=== PATIENT | female | born 1965 | race Caucasian/White ===

== ENCOUNTER 2017-08-20 15:36 | Emergency (ER) | payer BC, SELFPAY ==
[2017-08-20 15:37] VITALS: BP 182/98; BP 219/110; PULSE 75; PULSE 78; RESP 16; RESP 18; TEMP 36.5; O2SAT 97; O2SAT 98; BMI 54.9
--- NOTE | 2017-08-20 15:46 | XR_ITS ---
XR chest 2V HISTORY: ITS.REASON: chest pain ORDERING PHYSICIAN: Palmer Hackett MD PATIENT AGE: 52 years COMPARISON: None available FINDINGS: The cardiomediastinal silhouette and pulmonary vascularity are within normal limits. The lungs are clear without infiltrates, suspicious nodules, or pleural effusions. No acute bony abnormalities. IMPRESSION: Negative chest, no acute finding
[2017-08-20 15:57] LABS: Basophils # 0.1 K/mm3 (0-0.2); Basophils % 0.5 % (0.1-2.0); Eosinophils # 0.4 K/mm3 (0.0-0.4); Eosinophils % 3.6 % (0.1-12.0); Hematocrit 44.6 % (37.0-47.0); Hemoglobin 14.4 g/dL (12.2-16.2); Lymphocytes # 2.5 K/mm3 (0.7-4.5); Lymphocytes % 23.9 K/mm3 (10-50); Mean Corpuscular HGB Conc 32.3 g/dL (31.8-35.4); Mean Corpuscular Hemoglobin 26.5 pg (27.0-31.2); Mean Corpuscular Volume 82.1 fl (81-99); Mean Platelet Volume 8.6 fl (7.4-10.4); Monocytes # 0.7 K/mm3 (0.1-1.0); Monocytes % 6.9 % (1.7-9.3); Neutrophils # 6.8 K/mm3 (1.8-7.8); Neutrophils % 65.1 % (37.0-80.0); Platelet Count 317 K/mm3 (142-424); Red Blood Count 5.44 M/mm3 (4.20-5.40); Red Cell Distribution Width 14.2 % (11.5-17.5); White Blood Count 10.5 K/mm3 (4.8-10.8)
--- NOTE | 2017-08-20 15:59 | HMH.EDCP ---
ED Disposition Clinical Impression: GERD with esophagitis Chest pain Qualifiers: Chest pain type: unspecified Qualified Code(s): R07.9 - Chest pain, unspecified Disposition: Home, Self-Care Condition on Discharge: Fair Instructions: DI for Atypical Chest Pain Additional Instructions: Use Prilosec 20 mg BID and alternate maalox and mylanta 2 tbsp every [address] Minor to get referral for EGD and to get help with Anxiety Prescriptions: Omeprazole Magnesium [Prilosec Otc 20mg Tab] 20 mg PO BID 30 Days #60 tab Referrals: Chano Minor MD [Primary Care Provider] - Time of Disposition: 18:07 - Critical Care Critical Care Time: No Attestation: On 08/20/17, the high probability of a clinically significant, sudden or life threatening deterioration of the following system(s) required my full and direct attention, intervention and personal management. The time I documented below is in addition to time spent performing reported procedures but includes the following listed in this critical care notation. Medical Decision Making - Medical Records Medical records reviewed: Yes: I reviewed the patient's medical records. Vital Signs: 08/20/17 15:37 08/20/17 16:30 08/20/17 17:49 Temperature 97.7 F Temperature Source Oral Pulse Rate [Right Brachial] 78 74 79 Respiratory Rate 16 16 16 Blood Pressure [Right Arm] 182/98 133/98 139/78 Blood Pressure Mean [Right Arm] 126 109 98 Blood Pressure Source [Right Arm] Automatic Cuff Blood Pressure Position [Right Arm] Supine 02 Sat by Pulse Oximetry 97 98 98 Oxygen Delivery Method Room Air - Lab Data Lab results reviewed: Yes: I reviewed the patient's lab results. Lab Results 08/20/17 15:45: WBC 10.5, RBC 5.44 H, Hgb 14.4, Hct 44.6, MCV 82.1, MCH 26.5 L, MCHC 32.3, RDW 14.2, Plt Count 317, MPV 8.6, Neut % (Auto) 65.1, Lymph % (Auto) 23.9, [place] % (Auto) 6.9, Eos % (Auto) 3.6, Baso % (Auto) 0.5, Neut # (Auto) 6.8, Lymph # (Auto) 2.5, [place] # (Auto) 0.7, Eos # (Auto) 0.4, Baso # (Auto) 0.1 08/20/17 15:45: Sodium 139, Potassium 3.5, Chloride 102, Carbon Dioxide 29, Anion Gap 11.5, BUN 17, Creatinine 0.90, Estimated Creat Clear 62, Estimated GFR 65, Est GFR ( Amer) 79, Glucose 93, Calcium 8.9, Total Bilirubin 0.2, AST 24, ALT 31, Alkaline Phosphatase 103, Total Creatine Kinase 152, CK-MB (CK-2) 0.6, CK-MB (CK-2) Rel Index 0.4, Troponin I < 0.02, Total Protein 8.6 H, Albumin 3.7, Globulin 4.9 H, Albumin/Globulin Ratio 0.8 L, TSH 3.50, Free T4 Index 2.9 L, Thyroxine (T4) 8.8, T3 Uptake 33 Result diagrams: 08/20/17 15:45 08/20/17 15:45 Orders (Tests/Meds): ED MEDICATIONS Discontinued Medications Generic Name Dose Route Start Last Admin Trade Name Amado PRN Reason Stop Dose Admin Belladonna Alkaloids 60 ml 08/20/17 16:50 08/20/17 17:41 Gi Cocktail 60ml Udc PO 08/20/17 16:51 Not Given ONCE ONE Clonidine HCl 0.1 mg 08/20/17 16:53 08/20/17 17:41 Clonidine 0.1mg Tablet PO 08/20/17 16:54 0.1 mg ONCE ONE Administration ORDERS Category Date Time Status XR chest 2V Stat Exams 08/20/17 15:46 Taken - Radiology Data #1 Image(s): Chest Image Reviewed: Yes I reviewed the patient's radiology results, Yes I reviewed the patient's radiology image NAD - Nelson Inquiry Pt receiving controlled substance: No Nelson was queried for this patient: No Chest Pain HPI - General Chief Complaint: Chest Pain Stated Complaint: chest pain Time Seen by Provider: 08/20/17 16:01 Mode of Arrival: Family Vehicle Source of Information: Patient Limitations: No Limitations Description of Symptoms (Recalled from ER Triage Doc. by RN): pt presents with high bp after having been out of her meds for 2 weeks; additionally has. chest pain that she states radiates up left neck, down left arm, through left back and. numbness to left fingers. states had an episode of really bad heartburn last pm. and. progressively worsening
--- NOTE | 2017-08-20 16:09 | ED_ITS ---
ED Disposition Clinical Impression: GERD with esophagitis Chest pain Qualifiers: Chest pain type: unspecified Qualified Code(s): R07.9 - Chest pain, unspecified Disposition: Home, Self-Care Condition on Discharge: Fair Instructions: DI for Atypical Chest Pain Additional Instructions: Use Prilosec 20 mg BID and alternate maalox and mylanta 2 tbsp every [address] Minor to get referral for EGD and to get help with Anxiety Prescriptions: Omeprazole Magnesium [Prilosec Otc 20mg Tab] 20 mg PO BID 30 Days #60 tab Referrals: Chano Minor MD [Primary Care Provider] - Time of Disposition: 18:07 - Critical Care Critical Care Time: No Attestation: On 08/20/17, the high probability of a clinically significant, sudden or life threatening deterioration of the following system(s) required my full and direct attention, intervention and personal management. The time I documented below is in addition to time spent performing reported procedures but includes the following listed in this critical care notation. Medical Decision Making - Medical Records Medical records reviewed: Yes: I reviewed the patient's medical records. Vital Signs: 08/20/17 15:37 08/20/17 16:30 08/20/17 17:49 Temperature 97.7 F Temperature Source Oral Pulse Rate [Right Brachial] 78 74 79 Respiratory Rate 16 16 16 Blood Pressure [Right Arm] 182/98 133/98 139/78 Blood Pressure Mean [Right Arm] 126 109 98 Blood Pressure Source [Right Arm] Automatic Cuff Blood Pressure Position [Right Arm] Supine 02 Sat by Pulse Oximetry 97 98 98 Oxygen Delivery Method Room Air - Lab Data Lab results reviewed: Yes: I reviewed the patient's lab results. Lab Results 08/20/17 15:45: WBC 10.5, RBC 5.44 H, Hgb 14.4, Hct 44.6, MCV 82.1, MCH 26.5 L, MCHC 32.3, RDW 14.2, Plt Count 317, MPV 8.6, Neut % (Auto) 65.1, Lymph % (Auto) 23.9, [place] % (Auto) 6.9, Eos % (Auto) 3.6, Baso % (Auto) 0.5, Neut # (Auto) 6.8 , Lymph # (Auto) 2.5, [place] # (Auto) 0.7, Eos # (Auto) 0.4, Baso # (Auto) 0.1 08/20/17 15:45: Sodium 139, Potassium 3.5, Chloride 102, Carbon Dioxide 29, Anion Gap 11.5, BUN 17, Creatinine 0.90, Estimated Creat Clear 62, Estimated GFR 65, Est GFR ( Amer) 79, Glucose 93, Calcium 8.9, Total Bilirubin 0.2 , AST 24, ALT 31, Alkaline Phosphatase 103, Total Creatine Kinase 152, CK-MB (CK -2) 0.6, CK-MB (CK-2) Rel Index 0.4, Troponin I < 0.02, Total Protein 8.6 H, Albumin 3.7, Globulin 4.9 H, Albumin/Globulin Ratio 0.8 L, TSH 3.50, Free T4 Index 2.9 L, Thyroxine (T4) 8.8, T3 Uptake 33 Result diagrams: 08/20/17 15:45 08/20/17 15:45 Orders (Tests/Meds): ED MEDICATIONS Discontinued Medications Generic Name Dose Route Start Last Admin Trade Name Amado PRN Reason Stop Dose Admin Belladonna Alkaloids 60 ml 08/20/17 16:50 08/20/17 17:41 Gi Cocktail 60ml Udc PO 08/20/17 16:51 Not Given ONCE ONE Clonidine HCl 0.1 mg 08/20/17 16:53 08/20/17 17:41 Clonidine 0.1mg Tablet PO 08/20/17 16:54 0.1 mg ONCE ONE Administration ORDERS Category Date Time Status XR chest 2V Stat Exams 08/20/17 15:46 Taken - Radiology Data #1 Image(s): Chest Image Reviewed: Yes I reviewed the patient's radiology results, Yes I reviewed the patient's radiology image NAD - Nelson Inquiry [facility]
[2017-08-20 16:24] LABS: Alanine Aminotransferase 31 U/L (12-78); Albumin Level 3.7 gm/dL (3.4-5.0); Albumin/Globulin Ratio 0.8 (1.1-1.8); Alkaline Phosphatase 103 U/L (46-116); Anion Gap 11.5 mEq/L (5-15); Aspartate Amino Transferase 24 U/L (15-37); Bilirubin,Total 0.2 mg/dL (0.2-1.0); Blood Urea Nitrogen 17 mg/dL (7-18); CKMB Relative Index 0.4 U/L (0-4.0); Calcium 8.9 mg/dL (8.5-10.1); Carbon Dioxide 29 mmol/L (21.0-32.0); Chloride 102 mmol/L (98-107); Creatine Kinase 152 U/L (26-192); Creatine Kinase MB 0.6 mg/ml (0.0-3.6); Creatinine Clearance Estimated 62 mL/min (0-300); Estimated Glomerular Filt Rate 65 ml/min (>60); Free Thyroxine Index 2.9 ug/dL (5.93-13.13); GFR (African American) 79 ML/MIN (>60); Globulin 4.9 gm/dl (1.3-3.2); Glucose 93 mg/dL (74-106); Potassium 3.5 mmoL/L (3.5-5.1); Sodium 139 mmol/L (136-145); T4 (Thyroxine) 8.8 ug/dl (4.7-13.3); Total Protein,Serum 8.6 gm/dL (6.4-8.2); Triiodothryronine (T3) Uptake 33 % (31-39); Troponin I < 0.02 ng/ml (0.00-0.06)
[2017-08-20 16:30] VITALS: BP 133/98; PULSE 74; RESP 16; O2SAT 98
[2017-08-20 17:49] VITALS: BP 139/78; PULSE 79; RESP 16; O2SAT 98
[2017-08-20 18:14] VITALS: BP 139/87; PULSE 65; RESP 18; TEMP 36.7; O2SAT 98
== END 2017-08-20 18:14 | disposition home or self-care (01) ==
PROVIDERS: Emergency Provider General Practice; Family Provider Internal Medicine Adolescent Medicine; PCP Internal Medicine Adolescent Medicine
DX: K21.0 Gastro-esophageal reflux disease with esophagitis (principal); E11.9 Type 2 diabetes mellitus without complications; Z91.14 Patient's other noncompliance with medication regimen
CPT/HCPCS: 71046; 80053; 82550; 82553; 84436; 84443; 84479; 84484; 85025; 93005; 93041; 99284

== ENCOUNTER → 2018-12-04 10:03 | Outpatient (CLI) | payer BC, SELFPAY ==
--- NOTE | 2018-12-04 10:07 | MM_ITS ---
MM Dig screening mamm BI w/CAD CAD Screening COMPARISON: Post biopsy digital left mammogram 12/30/2014 and postbiopsy digital right mammogram 12/30/2014, both biopsies were negative. INDICATION: Is a history of breast cancer in patient's sister diagnosed before menopause. TECHNIQUE: Standard CC and MLO images were obtained. R2 CAD reviewed. FINDINGS: Scattered diffuse fibroglandular densities are seen throughout both breasts. There is a biopsy clip in the upper outer quadrant of each breast. There is very minimal post biopsy scarring in each breast. There is faint vascular calcification in each breast. There are scattered microcalcifications in each breast with focal clusters of microcalcifications in the upper outer quadrants of each breast. There is a stable benign-appearing nodular density lower inner quadrant left breast. Though there are no definite suspicious clusters of microcalcifications in view of the immediate family history of breast cancer and the diffuse microcalcifications in each breast and the fact that the patient has not had a mammogram since 2014 recommend patient have a six-month follow-up mammogram of both breasts for continuing evaluation. IMPRESSION: Fibrofatty parenchyma with diffuse microcalcifications in each breast which have a primarily benign appearance BI-RADS Category: 3 Probably Benign Finding Short Term Follow-up RECOMMENDED FOLLOW-UP: 6M - 6 MONTH FOLLOW-UP (A letter has been sent to the patient regarding results of the study.)
== END ==
PROVIDERS: PCP Internal Medicine Adolescent Medicine; Visit Provider Nurse Practitioner Family
DX: Z12.31 Encounter for screening mammogram for malignant neoplasm of breast (principal)
CPT/HCPCS: 77067

== ENCOUNTER → 2019-02-18 09:24 | Outpatient (CLI) | payer BC, SELFPAY ==
[2019-02-18 14:10] LABS: Alanine Aminotransferase 31 U/L (12-78); Albumin Level 3.4 gm/dL (3.4-5.0); Albumin/Globulin Ratio 0.9 (1.1-1.8); Alkaline Phosphatase 111 U/L (46-116); Anion Gap 13.4 mEq/L (5-15); Aspartate Amino Transferase 22 U/L (15-37); Bilirubin,Total 0.4 mg/dL (0.2-1.0); Blood Urea Nitrogen 21 mg/dL (7-18); Carbon Dioxide 29 mmol/L (21.0-32.0); Chloride 99 mmol/L (98-107); Estimated Glomerular Filt Rate 65 ml/min (>60); GFR (African American) 78 ML/MIN (>60); Globulin 3.9 gm/dl (1.3-3.2); Glucose 140 mg/dL (74-106); Potassium 4.4 mmoL/L (3.5-5.1); Sodium 137 mmol/L (136-145); Total Protein,Serum 7.3 gm/dL (6.4-8.2)
== END ==
PROVIDERS: PCP Internal Medicine Adolescent Medicine; Visit Provider Internal Medicine Adolescent Medicine
DX: I10 Essential (primary) hypertension (principal); R25.2 Cramp and spasm
CPT/HCPCS: 36415; 80053

== ENCOUNTER → 2019-08-07 09:42 | Outpatient (CLI) | payer BC, SELFPAY ==
[2019-08-07 11:29] LABS: Alanine Aminotransferase 29 U/L (12-78); Albumin Level 3.5 gm/dL (3.4-5.0); Alkaline Phosphatase 94 U/L (46-116); Anion Gap 9.5 mEq/L (5-15); Aspartate Amino Transferase 24 U/L (15-37); Bilirubin,Total 0.3 mg/dL (0.2-1.0); Blood Urea Nitrogen 20 mg/dL (7-18); Calcium 8.7 mg/dL (8.5-10.1); Carbon Dioxide 32 mmol/L (21.0-32.0); Chloride 99 mmol/L (98-107); Chol/HDL Ratio 3.1 (1-3.5); Cholesterol 213 mg/dL (140-200); Creatinine,Serum 0.97 mg/dL (0.55-1.02); Estimated Glomerular Filt Rate 59 ml/min (>60); GFR (African American) 72 ML/MIN (>60); Globulin 3.6 gm/dl (1.3-3.2); Glucose 134 mg/dL (74-106); HDL Cholesterol 69 mg/dL (29-89); LDL Cholesterol 121 mg/dL (0-130); Potassium 3.5 mmoL/L (3.5-5.1); Sodium 137 mmol/L (136-145); Total Protein,Serum 7.1 gm/dL (6.4-8.2); Triglycerides 113 mg/dL (30-200); VLDL Cholesterol 23 mg/dL (0-40)
[2019-08-07 13:23] LABS: Hemoglobin A1C 6.9 % (0.0-7.0)
== END ==
PROVIDERS: Visit Provider Internal Medicine Adolescent Medicine
DX: E78.49 Other hyperlipidemia (principal); R73.9 Hyperglycemia, unspecified; I10 Essential (primary) hypertension
CPT/HCPCS: 36415; 80053; 80061; 83036

== ENCOUNTER → 2020-03-11 08:31 | Outpatient (CLI) | payer BC, SELFPAY ==
--- NOTE | 2020-03-11 08:41 | XR_ITS ---
PROCEDURE: XR LUMBAR SPINE MIN 4V CLINICAL INDICATION: BACK PAIN Low back pain COMPARISON: No exams were available for comparison FINDINGS: Normal alignment. There is mild wedging of L4 which is age indeterminate. MRI may provide further evaluation for the age of this finding. Mild facet arthritic changes are noted at L5-S1. IMPRESSION: Mild wedging of L4 age indeterminate with minimal degenerative change Dictated b Jordan Spicer MD 03/11/2020 12:16 Jordan Spicer MD in [place] 03/11/2020 12:16
== END ==
PROVIDERS: PCP Internal Medicine Adolescent Medicine; Visit Provider Internal Medicine Adolescent Medicine
DX: M54.9 Dorsalgia, unspecified (principal)
CPT/HCPCS: 72110

== ENCOUNTER → 2020-11-03 12:01 | Outpatient (CLI) | payer BC, SELFPAY ==
--- NOTE | 2020-11-03 12:04 | CT_ITS ---
PROCEDURE: CT ABDOMEN PELVIS WO CON CLINICAL INDICATION: FLANK PAIN Left sided C hematuria Renal stone COMPARISON: No exams were available for comparison TECHNIQUE: Axial images obtained with sagittal and coronal reformats. All CT scans at the facility use one or more dose reduction, viz: automated exposure control, ma/kV adjustment per patient size (including targeted exams where dose is matched to indication, i.e. head), or iterative reconstruction technique. FINDINGS: LOWER THORAX: There is a 4 mm subpleural opacity in the left upper lobe nonspecific incompletely imaged. ABDOMEN & PELVIS: Fatty liver. The spleen, adrenal glands, and pancreas have an unremarkable unenhanced appearance. No renal or ureteral calculi. No hydronephrosis. Prior hysterectomy. No evidence of appendicitis or diverticulitis. No intestinal obstruction or free air. There is a tiny umbilical hernia which contains fat. No acute bony finding. IMPRESSION: No acute finding. Fatty liver. Nonspecific left upper lobe 4 mm pulmonary nodule Dictated by: Jordan Spicer MD 11/04/2020 11:43 Jordan Spicer MD in [facility] 11/04/2020 11:43
== END ==
PROVIDERS: PCP Internal Medicine Adolescent Medicine; Visit Provider Internal Medicine Adolescent Medicine
DX: R10.9 Unspecified abdominal pain (principal)
CPT/HCPCS: 74176

== ENCOUNTER 2020-12-30 10:34 | Observation (INO) | payer BC, SELFPAY ==
[2020-12-30] VITALS (22 sets, daily range): BP systolic 152–211; BP diastolic 74–96; PULSE 57–72; RESP 12–20; TEMP 36.1–36.8; O2SAT 92–100; BMI 49.4; BMI 48.9
--- NOTE | 2020-12-30 10:29 | ECG_ITS ---
APPROVED REPORT Exam: Resting ECG HR:62 bpm ECG Measurements Heart Rate 62 AXES VT 154 P 54 QRSd 86 QRS 58 QT 424 T 60 QTc 430 Conclusion Normal sinus rhythm with sinus arrhythmia Late r wave progression Abnormal ECG Electronically signed by : Chano Minor, 12/31/2020 10:23:21
--- NOTE | 2020-12-30 10:56 | XR_ITS ---
PROCEDURE: XR CHEST 2V CLINICAL HISTORY: chest pain COMPARISON: CR CXR1 CHEST-PORTABLE from 05/16/[address] CHEST W/ CONTRAST from 05/19/2016 CR CXR1 CHEST-PORTABLE from 08/29/2016 CR CXR2V XR chest 2V from 08/20/2017 FINDINGS: The cardiomediastinal silhouette and pulmonary vascularity are within normal limits. The lungs are clear without infiltrates, suspicious nodules, or pleural effusions. No acute bony abnormalities. IMPRESSION: No acute findings. Dictated by: Jordan Spicer MD 12/30/2020 11:13 Jordan Spicer MD in [place] 12/30/2020 11:13
--- NOTE | 2020-12-30 11:03 | PC.NURSE ---
pt going to xray
--- NOTE | 2020-12-30 11:03 | HMH.EDGENADL ---
ED Disposition Clinical Impression: Atypical chest pain, Esophagitis, Hypertension, UTI (urinary tract infection) Disposition: Admitted as Observation Condition on Discharge: Fair Referrals: Provider,ReferralMD [Referring] - - Critical Care Critical Care Time: No Attestation: On 12/30/20, the high probability of a clinically significant, sudden or life threatening deterioration of the following system(s) required my full and direct attention, intervention and personal management. The time I documented below is in addition to time spent performing reported procedures but includes the following listed in this critical care notation. Medical Decision Making - Medical Records Medical records reviewed: Yes: I reviewed the patient's medical records. - Nelson Inquiry Pt receiving controlled substance: No Vital Signs: 12/30/20 10:34 12/30/20 11:00 12/30/20 11:15 Temperature 98.2 F Temperature Source Oral Pulse Rate 64 68 Pulse Rate [Left Radial] 67 Respiratory Rate 20 17 14 Blood Pressure 211/82 H 210/86 H Blood Pressure [Right Arm] 210/85 H Blood Pressure Mean [Right Arm] 126 Blood Pressure Source Blood Pressure Source [Right Arm] Automatic Cuff Blood Pressure Position Blood Pressure Position [Right Arm] Sitting 02 Sat by Pulse Oximetry 100 98 92 L Oxygen Delivery Method Room Air 12/30/20 11:25 12/30/20 11:31 12/30/20 11:45 Temperature Temperature Source Pulse Rate 57 L 60 63 Pulse Rate [Left Radial] Respiratory Rate 12 14 14 Blood Pressure 196/93 H 194/83 H 188/89 H Blood Pressure [Right Arm] Blood Pressure Mean [Right Arm] Blood Pressure Source Automatic Cuff Blood Pressure Source [Right Arm] Blood Pressure Position Sitting Blood Pressure Position [Right Arm] 02 Sat by Pulse Oximetry 97 98 95 Oxygen Delivery Method 12/30/20 12:01 12/30/20 12:25 Temperature Temperature Source Pulse Rate 70 67 Pulse Rate [Left Radial] Respiratory Rate 12 13 Blood Pressure 199/91 H 192/88 H Blood Pressure [Right Arm] Blood Pressure Mean [Right Arm] Blood Pressure Source Blood Pressure Source [Right Arm] Blood Pressure Position Blood Pressure Position [Right Arm] 02 Sat by Pulse Oximetry 94 L 100 Oxygen Delivery Method - Lab Data Lab results reviewed: Yes: I reviewed the patient's lab results. Lab Results 12/30/20 10:30: WBC 7.1, RBC 4.32, Hgb 11.8 L, Hct 35.7 L, MCV 82.6, MCH 27.2, MCHC 33.0, RDW 14.4, Plt Count 314, MPV 8.4, Neut % (Auto) 65.2, Lymph % (Auto) 24.1, [place] % (Auto) 5.4, Eos % (Auto) 4.8, Baso % (Auto) 0.4, Neut # (Auto) 4.6, Lymph # (Auto) 1.7, [place] # (Auto) 0.4, Eos # (Auto) 0.3, Baso # (Auto) 0.0 12/30/20 10:30: Sodium 140, Potassium 3.7, Chloride 105, Carbon Dioxide 29, Anion Gap 9.7, BUN 8, Creatinine 0.90, Estimated Creat Clear 57, Estimated GFR 65, Est GFR ( Amer) 78, Glucose 126 H, Calcium 8.7, Troponin I < 0.01 12/30/20 11:12: Urine Color Yellow, Urine Appearance Clear, Urine pH 6.0, Ur Specific [place] 1.015, Urine Protein Negative, Urine Glucose (UA) Negative, Urine Ketones Negative, Urine Blood 1+, Urine Nitrate Negative, Urine Bilirubin Negative, Urine Urobilinogen 0.2, Ur Leukocyte Esterase 2+ A, Urine RBC None, Urine WBC 10-20, Ur Squamous Epith Cells 5-10, Urine Bacteria None Result diagrams: 12/30/20 10:30 12/30/20 10:30 Orders (Tests/Meds): ED MEDICATIONS Discontinued Medications Generic Name Dose Route Start Last Admin Trade Name Amado PRN Reason Stop Dose Admin Carvedilol 12.5 mg 12/30/20 11:55 12/30/20 12:00 Carvedilol 12.5mg Tablet PO 12/30/20 11:56 12.5 mg ONCE ONE Administration Ketorolac Tromethamine 30 mg 12/30/20 10:59 12/30/20 11:15 Ketorolac 30mg/Ml Vial IV 12/30/20 11:00 30 mg ONCE ONE Administration Lisinopril 20 mg 12/30/20 12:00 Lisinopril 20mg Tablet PO 01/29/21 11:59 DAILY SALMA Lisinopril 20 mg 12/31/20 11:55 Lisinopril 20mg
[2020-12-30 11:09] LABS: Basophils % 0.4 % (0.1-2.0); Eosinophils # 0.3 K/mm3 (0.0-0.4); Eosinophils % 4.8 % (0.1-12.0); Hematocrit 35.7 % (37.0-47.0); Hemoglobin 11.8 g/dL (12.2-16.2); Lymphocytes # 1.7 K/mm3 (0.7-4.5); Lymphocytes % 24.1 % (10-50); Mean Corpuscular Hemoglobin 27.2 pg (27.0-31.2); Mean Corpuscular Volume 82.6 fl (81-99); Mean Platelet Volume 8.4 fl (7.4-10.4); Monocytes # 0.4 K/mm3 (0.1-1.0); Monocytes % 5.4 % (1.7-9.3); Neutrophils # 4.6 K/mm3 (1.8-7.8); Neutrophils % 65.2 % (37.0-80.0); Platelet Count 314 K/mm3 (142-424); Red Blood Count 4.32 M/mm3 (4.20-5.40); Red Cell Distribution Width 14.4 % (11.5-17.5); White Blood Count 7.1 K/mm3 (4.8-10.8)
[2020-12-30 11:25] LABS: Microscopic, Urine URINE MICROSCOPIC (MICROSCOPIC)
[2020-12-30 11:26] LABS: Anion Gap 9.7 mEq/L (5-15); Blood Urea Nitrogen 8 mg/dl (7-17); Calcium 8.7 mg/dl (8.4-10.2); Carbon Dioxide 29 mmol/L (22.0-30.0); Chloride 105 mmol/L (98-107); Creatinine Clearance Estimated 57 mL/min (50-200); Estimated Glomerular Filt Rate 65 ml/min (>60); GFR (African American) 78 ML/MIN (>60); Glucose 126 mg/dl (74-100); Potassium 3.7 mmoL/L (3.5-5.1); Sodium 140 mmol/L (136-145)
[2020-12-30 11:32] LABS: Appearance,Urine CLEAR (Clear); Bilirubin,Urine Negative (Negative); Blood, Urine 1+ (Negative); Color,Urine YELLOW (Yellow); Glucose,Urine (UA) Negative (Negative); Ketones,Urine Negative (Negative); Leukocyte Esterase,Urine 2+ (Negative); Nitrate,Urine Negative (Negative); Protein,Urine Negative (Negative); Specific Gravity, Urine 1.015 (1.005-1.030); Urobilinogen,Urine 0.2 EU/dl (0.2)
[2020-12-30 11:44] LABS: Troponin I < 0.01 ng/ml (0.00-0.034)
[2020-12-30 14:16] LABS: Adenovirus,PCR Not Detected (NotDetected); Bordetella Pertussis Not Detected (NotDetected); Chlamydophila Pneumoniae, PCR Not Detected (NotDetected); Coronavirus 19, PCR Not Detected (NotDetected); Coronavirus 229E Not Detected (NotDetected); Coronavirus NL63 Not Detected (NotDetected); Coronavirus OC43 Not Detected (NotDetected); Coronovirus HKU1,PCR Not Detected (NotDetected); Human Metapneumovirus Not Detected (NotDetected); Influenza A, PCR Not Detected (NotDetected); Influenza AH1, 2009 Not Detected (NotDetected); Influenza AH1, PCR Not Detected (NotDetected); Influenza AH3,PCR Not Detected (NotDetected); Influenza B, PCR Not Detected (NotDetected); Mycoplasma Pneumoniae, PCR Not Detected (NotDetected); Parainfluenza 1, PCR Not Detected (NotDetected); Parainfluenza 2, PCR Not Detected (NotDetected); Parainfluenza 3, PCR Not Detected (NotDetected); Parainfluenza 4, PCR Not Detected (NotDetected); Respiratory Syncytial Virus Not Detected (NotDetected); Rhinovirus/Enterovirus Not Detected (NotDetected)
--- NOTE | 2020-12-30 14:43 | PC.NURSE ---
Pt waiting covid results to go to room on floor
[2020-12-30 15:29] LABS: Troponin I < 0.01 ng/ml (0.00-0.034)
--- NOTE | 2020-12-30 15:33 | PC.NURSE ---
Approx 90 mins left on covid swab
--- NOTE | 2020-12-30 15:43 | PC.NURSE ---
Report given to Lorraine KENNEDY
--- NOTE | 2020-12-30 15:54 | PC.NURSE ---
MARCIA CRUM SPOKE WITH TELEVISION ENGINEERING TEACHER ABOU MOVING PT TO THE FLOOR. PT HAD BEEN IN ED FOR OVER 5HRS AND WE WERE WAITING ON COVID SWAB AT THIS TIME, NO COVID SYMPTOMS. HOUSE AGREEABLE. REPORT CALLED AND PT TRANSPORTED TO FLOOR PER KSYLARN
--- NOTE | 2020-12-30 17:09 | HMH.HP ---
*Admission Date: 12/30/20 *Chief complaint: chest pain, Hypertensive emergency, gastroenteritis *History of present illness: Ms. Bucio is a 55-year-old female with Hx of diabetes, HTN, anxiety, morbid obesity who presented to clinic today with 3 to 4 days of nausea and vomiting. States she has a headache, feels dizzy, has had a cough but this is her baseline. Also complains of having intense chest pain off and on that is not made worse with coughing. Chest pain last night felt like an elephant was sitting on her chest.. Has tried to take her meds but does not think she is been able to keep them down and is probably thrown them up over the past several days. Initial blood pressure severely elevated with systolic greater than 170. EKG obtained in the office normal sinus rhythm and no ST elevations or T wave inversions. Given severe hypertension, inability to keep down oral medications, and complaint of chest pain, EMS was contacted to take patient to the hospital for further work-up and management. On arrival to the ER at [facility], Mr. Bucio was found to have blood pressure even more elevated than in our office. Labs were surprisingly normal. Patient was given a dose of nitroglycerin with some improvement or chest pain. Decision made to admit patient for serial troponins, treatment of her hypertension, and treatment of her nausea and vomiting. [facility] History Medical History: Reports:: Anxiety, Depression, Diabetes Mellitus Type 2, Hyperlipidemia, Hypertension Denies:: Cancer, Diabetes Mellitus Type 1, Internal Pacemaker, MRSA *Have you ever received a pneumonia vaccine?: Yes *Have you received a flu vaccine this season?: Yes Other Surgeries: Yes: Hysterectomy-Total, Tubal Ligation. No: Pacemaker Amputation: No Fractures: No - *Social History Last grade of school completed: 9th or 10th Smoking Status: Never smoker Alcohol Intake: never Alcohol Intake Frequency:: other Substance Use Type: denies use *Occupational Status:: unemployed Housing: house Household Members: spouse *Travel in the last 8 weeks: None - Psychiatric History Pschychiatric History:: Reports:: Anxiety, Depression Family Hx:: Unable to obtain Review of Systems - Review of Systems Review of systems:: pertinent systems reviewed and negative unless documented below (14 point review of systems performed, pertinent positives and negatives as per HPI) Meds Home Medications Medication Instructions Recorded Confirmed Type Aspirin 81 mg PO DAILY 12/30/20 12/30/20 History Atorvastatin Calcium [Lipitor 20mg 20 mg PO DAILY 12/30/20 12/30/20 History Tab] Buspirone HCl [Buspirone 15 mg 15 mg PO DAILY 12/30/20 12/30/20 History Tablets] Furosemide [Lasix 40mg tablet] 40 mg PO DAILY 12/30/20 12/30/20 History Metformin HCl [Metformin 1000mg 1,000 mg PO BID 12/30/20 12/30/20 History Tablets] Omeprazole Magnesium [Prilosec Otc 20 mg PO BID 12/30/20 12/30/20 History 20mg Tab] carvediloL [Carvedilol 12.5mg Tab] 12.5 mg PO BID 12/30/20 12/30/20 History lisinopriL [Lisinopril] 20 mg PO BID 12/30/20 12/30/20 History Allergies Allergy/AdvReac Type Severity Reaction Status Date / Time Penicillins [PENICILLINS] Allergy Unknown Verified 12/30/20 11:55 Exam Vital signs and Labs for Last 24 Hours: Temp Pulse Resp BP Pulse Ox 98.3 F 72 16 152/74 H 98 12/30/20 15:55 12/30/20 15:55 12/30/20 15:55 12/30/20 15:55 12/30/20 15:48 Laboratory Results - last 24 hr 12/30/20 10:30: WBC 7.1, RBC 4.32, Hgb 11.8 L, Hct 35.7 L, MCV 82.6, MCH 27.2, MCHC 33.0, RDW 14.4, Plt Count 314, MPV 8.4, Neut % (Auto) 65.2, Lymph % (Auto) 24.1, [place] % (Auto) 5.4, Eos % (Auto) 4.8, Baso % (Auto) 0.4, Neut # (Auto) 4.6, Lymph # (Auto) 1.7, [place] # (Auto) 0.4, Eos # (Auto) 0.3, Baso # (Auto) 0.0 12/30/20 10:30: Sodium 140, Potassium 3.7, Chloride 105, Carbon Dioxide 29, Anion Gap 9.7, BUN 8, Creatinine 0.90, Estimated Creat Clear 57, Estimated GF
[2020-12-30 18:08] LABS: Troponin I < 0.01 ng/ml (0.00-0.034)
[2020-12-30 21:04] LABS: POC Glucose,Bedside 87 (70-110)
[2020-12-30 21:05] LABS: Troponin I < 0.01 ng/ml (0.00-0.034)
[2020-12-31] VITALS (9 sets, daily range): BP systolic 153–183; BP diastolic 69–94; PULSE 60–80; RESP 15–17; TEMP 36.8; O2SAT 96–98
[2020-12-31 05:27] LABS: POC Glucose,Bedside 129 (70-110)
--- NOTE | 2020-12-31 05:54 | PC.NURSE ---
pt has rested intermittently t/o shift, remains on room air, voiding without difficulty, has complained of a headache and pain in her side, also complained of pain while coughing, telemetry has shown sinus arrhythmia
[2020-12-31 06:42] LABS: Basophils % 0.5 % (0.1-2.0); Eosinophils # 0.5 K/mm3 (0.0-0.4); Hematocrit 34.5 % (37.0-47.0); Hemoglobin 11.4 g/dL (12.2-16.2); Lymphocytes # 1.7 K/mm3 (0.7-4.5); Lymphocytes % 29.5 % (10-50); Mean Corpuscular HGB Conc 33.1 g/dL (31.8-35.4); Mean Corpuscular Hemoglobin 27.1 pg (27.0-31.2); Mean Corpuscular Volume 81.7 fl (81-99); Mean Platelet Volume 8.5 fl (7.4-10.4); Monocytes # 0.4 K/mm3 (0.1-1.0); Monocytes % 6.8 % (1.7-9.3); Neutrophils # 3.2 K/mm3 (1.8-7.8); Neutrophils % 55.2 % (37.0-80.0); Platelet Count 272 K/mm3 (142-424); Red Blood Count 4.23 M/mm3 (4.20-5.40); Red Cell Distribution Width 14.6 % (11.5-17.5); White Blood Count 5.8 K/mm3 (4.8-10.8)
[2020-12-31 07:00] LABS: Chloride 105 mmol/L (98-107); Potassium 3.5 mmoL/L (3.5-5.1); Sodium 138 mmol/L (136-145)
[2020-12-31 07:03] LABS: Anion Gap 11.5 mEq/L (5-15); Blood Urea Nitrogen 7 mg/dl (7-17); Carbon Dioxide 25 mmol/L (22.0-30.0); Creatinine Clearance Estimated 64 mL/min (50-200); Estimated Glomerular Filt Rate 74 ml/min (>60); GFR (African American) 89 ML/MIN (>60)
[2020-12-31 07:04] LABS: Calcium 8.6 mg/dl (8.4-10.2); Glucose 125 mg/dl (74-100)
--- NOTE | 2020-12-31 09:42 | HMH.PHAVTE ---
[facility] Pharmacy VTE Monitoring - Patient Demographics Admission date: 12/30/20 Report Date: 12/31/20 Time: 09:42 Allergies/Adverse Reactions: Patient Allergies Penicillins [PENICILLINS] Allergy (Unknown, Verified 12/30/20 11:55) Height: 1.6 m Weight: 125.277 kg Patient Problems: Current Active Problems GERD with esophagitis (Acute) Atypical chest pain (Acute) Esophagitis (Acute) Hypertension (Acute) UTI (urinary tract infection) (Acute) Hypertensive emergency (Acute) - VTE Risk Labs: VTE Related Lab Results Hgb 11.4 g/dL (12.2-16.2) L 12/31/20 06:32 Hct 34.5 % (37.0-47.0) L 12/31/20 06:32 Plt Count 272 K/mm3 (142-424) 12/31/20 06:32 BUN 7 mg/dl (7-17) 12/31/20 06:32 Creatinine 0.80 mg/dl (0.52-1.04) 12/31/20 06:32 Estimated Creat Clear 64 mL/min (50-200) 12/31/20 06:32 Was VTE Risk Assessment Performed: Yes VTE Score: 2 VTE Risk Level: Low Risk Clinical Trial Participant: No - Prophylaxis VTE Prophylaxis Ordered?: Yes Types of VTE Prophylaxis: TEDS Knee High
--- NOTE | 2020-12-31 09:49 | HMH.PHAINT ---
CLARIFIED HOME MEDICATION LIST USING LIST FROM PATIENT AND [facility]
--- NOTE | 2020-12-31 14:55 | HMH.DCSUM ---
General - General Admission date:: 12/30/20 Discharge date: 12/31/20 HPI HPI: Ms. Bucio is a 55-year-old female with Hx of diabetes, HTN, anxiety, morbid obesity who presented to clinic today with 3 to 4 days of nausea and vomiting. States she has a headache, feels dizzy, has had a cough but this is her baseline. Also complains of having intense chest pain off and on that is not made worse with coughing. Chest pain last night felt like an elephant was sitting on her chest.. Has tried to take her meds but does not think she is been able to keep them down and is probably thrown them up over the past several days. Initial blood pressure severely elevated with systolic greater than 170. EKG obtained in the office normal sinus rhythm and no ST elevations or T wave inversions. Given severe hypertension, inability to keep down oral medications, and complaint of chest pain, EMS was contacted to take patient to the hospital for further work-up and management. On arrival to the ER at [facility], Mr. Bucio was found to have blood pressure even more elevated than in our office. Labs were surprisingly normal. Patient was given a dose of nitroglycerin with some improvement or chest pain. Decision made to admit patient for serial troponins, treatment of her hypertension, and treatment of her nausea and vomiting. Hospital Course Hospital Course: 55-year-old female admitted for chest pain, UTI, hypertensive emergency. Responded to treatment for dyspepsia and initiation of antibiotics. Improvement in blood pressure with resumption of home regimen however still remained hypertensive. Initiated amlodipine for additional coverage and plan to continue in the outpatient setting. Transition to oral Levaquin for UTI treatment. Patient remains afebrile, improvement in blood pressure, tolerating p.o. intake. Meeting clinical criteria for discharge home with plan for close follow-up next week to monitor blood pressure control and resolution of urinary tract infection. Patient denies diarrhea, shortness of breath, confusion or headache. Still feels a little fatigued with improvement in blood pressure, heartburn, minimal nausea. Objective Vital signs: Temp Pulse Resp BP Pulse Ox 98.2 F 60 15 153/94 H 97 12/31/20 11:26 12/31/20 14:55 12/31/20 11:26 12/31/20 11:26 12/31/20 11:26 no acute distress, morbidly obese - *Routine HEENT Exam Head: Present: normocephalic Eye: Present: EOMI, PERRL ENT: Present: mucous membranes moist - *Routine Neck Exam Present: supple - *Routine Respiratory Exam Present: CTA bilaterally - *Routine Cardiovascular Exam Present: RRR - *Routine Abdominal Exam Present: soft, normoactive bowel sounds, tenderness (mild epigastric) - *Routine Extremities Exam Absent: cyanosis, clubbing, edema - *Routine Skin Exam Present: warm. Absent: rash Results Labs on day of discharge: Labs from last 24 hours 12/31/20 12/31/20 12/31/20 06:32 06:32 05:20 WBC 5.8 RBC 4.23 Hgb 11.4 L Hct 34.5 L MCV 81.7 MCH 27.1 MCHC 33.1 RDW 14.6 Plt Count 272 MPV 8.5 Neut % (Auto) 55.2 Lymph % (Auto) 29.5 [place] % (Auto) 6.8 Eos % (Auto) 8.0 Baso % (Auto) 0.5 Neut # (Auto) 3.2 Lymph # (Auto) 1.7 [place] # (Auto) 0.4 Eos # (Auto) 0.5 H Baso # (Auto) 0.0 Sodium 138 Potassium 3.5 Chloride 105 Carbon Dioxide 25 Anion Gap 11.5 BUN 7 Creatinine 0.80 Estimated Creat Clear 64 Estimated GFR 74 Est GFR ( Amer) 89 Glucose 125 H POC Glucose 129 H Calcium 8.6 Troponin I Urine Color Urine Appearance Urine pH Ur Specific [place] Urine Protein Urine Glucose (UA) Urine Ketones Urine Blood Urine Nitrate Urine Bilirubin Urine Urobilinogen Ur Leukocyte Esterase Urine RBC Urine WBC Ur Squamous Epith Cells Urine Bacteria Chlamy
[2020-12-31 17:02] LABS: POC Glucose,Bedside 104 (70-110)
== END 2020-12-31 16:35 | disposition home or self-care (01) ==
LOC: ER 11:01 → 2ND 14:12
PROVIDERS: Admitting Provider Internal Medicine Adolescent Medicine; Emergency Provider Emergency Medicine; PCP Internal Medicine Adolescent Medicine; Visit Provider Internal Medicine Adolescent Medicine
DX: R07.89 Other chest pain (principal); K21.00 Gastro-esophageal reflux disease with esophagitis, without bleeding; I16.1 Hypertensive emergency; N39.0 Urinary tract infection, site not specified; E11.9 Type 2 diabetes mellitus without complications; Z68.41 Body mass index [BMI] 40.0-44.9, adult; E66.01 Morbid (severe) obesity due to excess calories; Z79.84 Long term (current) use of oral hypoglycemic drugs; Z79.899 Other long term (current) drug therapy
CPT/HCPCS: 36415; 71046; 80048; 81001; 82962; 84484; 85025; 87086; 87088; 87186; 87581; 87633; 87798; 93005; 96365; 96375; 99284; G0378; J1956

== ENCOUNTER → 2021-01-28 11:34 | Outpatient (CLI) | payer BC, SELFPAY ==
--- NOTE | 2021-01-28 | CA_ITS ---
APPROVED REPORT Exam: Pharmacologic Technologist: Anabell Pan, Ht: 5 ft 3 in Wt: 276 lbs BSA: 2.22 m2 HR: 65 bpm BP: 144/66 mmHg Rhythm: Sinus rhythm Medical History Medical History: HTN, Hyperlipidemia Medications: Amlodipine,,,,, Asa,,,,, Metformin,,,,, Carvedilol,,,,, Prilosec,,,,, Buspirone,,,,, Lasix,,,,, Lipitor,,,,, BenzONATATE,,,,, Lisinopri/HCTZ,,,,, VenlaDFAXINE,,,,, Cardiac Risk Factors: HTN, Hyperlipidemia Stress Test Details Test: LEXISCAN HR Resting HR: 70 bpm Max Heart Rate (APMHR): 163.676329 bpm Max HR Achieved: 94 bpm Target HR (85% APMHR): 138.797033 bpm % of APMHR: 57.67 Recovery HR: 81 bpm BP Resting BP: 146/66 mmHg Max BP: 146/66 mmHg Recovery BP: 110.0/46.0 mmHg ECG Resting ECG: sinus rhythm Clinical Exercise duration: 04:01 min Highest Stage Achieved: Exercise capacity: 1.0 METs Stress ECG Conclusion Lexiscan protocol completed. Patient complained of shortness of breath during peak infusion, resolved in recovery. No complaint of chest pain. No ectopy. Less than 1.5mm st response. Images to follow Test Summary REST . . . . . . . Sitting REST 01:34 . . 70 . 146/ 66 . . Stage 1 . . . . . . . Myoview Injected Stage 1 01:00 . . 88 . . . . Stage 2 01:00 . . 90 . . . . Stage 3 01:00 . . 85 . 105/ 45 . . Stage 4 01:00 . . 81 . 115/ 44 . . Stage 4 01:01 . . 81 . 115/ 44 . Stop exercise at 04:01 RECOVERY 01:00 . . 78 . 110/ 46 . . RECOVERY 02:00 . . 78 . 114/ 52 . . RECOVERY 03:00 . . 78 . 114/ 52 . . RECOVERY 03:30 . . 75 . 123/ 56 . . Electronically signed by : Conor Keith 01/28/2021 13:39:54
--- NOTE | 2021-01-28 11:37 | NM_ITS ---
APPROVED REPORT Exam: Nuclear Stress Test Indication: chest pain..syncope..fatigue Patient Location: Outpatient Stress Tech: Anabell ADAMS Tech:Gina LyonsMARLIN RT(R)(N) Ht: 5 ft 3 in Wt: 277 lbs Bra Size: 50d HR: 65 bpm BP: 146/66 mmHg BSA: 2.22 m2 BMI: 49.0 History: chest pain..syncope..fatigue Procedure: Patient received a 0.4 mg of intravenous Lexiscan, resting heart rate 65 bpm, resting blood pressure 146/66 mmHg, with Lexiscan maximum heart rate achived was 82 bpm which is Less than 85 % of the maximum predicted heart rate and blood pressure was 115/44 mmHg. With Lexiscan, patient denied any complaint of chest pain. Electrocardiogram Resting electrocardiogram showed sinus rhythm, with Lexiscan there is less than 1.[address] segment depression noted from the baseline EKG. The EKG portion of the Lexiscan is nondiagnostic. Cardiac Stress and Resting SPECT Images: Cardiac Stress and Resting SPECT images were obtained using technetium 99m Myoview 29.1 mCi stress and 10.69 mCi at rest. Gated SPECT for analysis of segmental wall motion and calculation of the ejection fraction also done, prone images were not obtained. Cardiac stress and resting SPECT images show uniform myocardial activity without segmental perfusion abnormality, computer derived ejection fraction is 54% with no regional wall motion abnormality, right ventricle is normal size and contractility. Conclusion: 1. The EKG portion of the Lexiscan is nondiagnostic. 2. No scintigraphic evidence of reversible ischemia seen, computer derived ejection fraction is 54% with no regional wall motion abnormality, right ventricle is normal size and contractility. 3. Normal Lexiscan Myoview study. Electronically signed by : Conor Keith, 01/29/2021 09:19:35
== END ==
PROVIDERS: PCP Internal Medicine Adolescent Medicine; Visit Provider Internal Medicine Adolescent Medicine
DX: R07.9 Chest pain, unspecified (principal); I10 Essential (primary) hypertension
CPT/HCPCS: 78452; 93017; A9502; J2785

== ENCOUNTER → 2021-02-11 09:04 | Outpatient (CLI) | payer BC, SELFPAY ==
[2021-02-11 09:26] LABS: Alanine Aminotransferase 23 U/L (12-78); Albumin Level 4.1 g/dl (3.5-5.0); Albumin/Globulin Ratio 1.3 (1.1-1.8); Alkaline Phosphatase 106 U/L (38-126); Anion Gap 15.2 mEq/L (5-15); Aspartate Amino Transferase 27 U/L (14-36); Bilirubin,Total 0.5 mg/dl (0.2-1.3); Blood Urea Nitrogen 16 mg/dl (7-17); Calcium 8.9 mg/dl (8.4-10.2); Carbon Dioxide 27 mmol/L (22.0-30.0); Chloride 102 mmol/L (98-107); Estimated Glomerular Filt Rate 74 ml/min (>60); GFR (African American) 89 ML/MIN (>60); Globulin 3.1 g/dL (1.3-3.2); Glucose 129 mg/dl (74-100); Potassium 4.2 mmoL/L (3.5-5.1); Sodium 140 mmol/L (136-145); Total Protein,Serum 7.2 g/dl (6.3-8.2)
[2021-02-11 09:27] LABS: Hemoglobin A1C 6.4 % (4.0-6.0)
== END ==
PROVIDERS: Visit Provider Internal Medicine Adolescent Medicine
DX: I10 Essential (primary) hypertension (principal); E11.9 Type 2 diabetes mellitus without complications
CPT/HCPCS: 80053; 83036

== ENCOUNTER → 2021-05-24 14:57 | Outpatient (CLI) | payer BC, SELFPAY ==
[2021-05-24 15:36] LABS: Hemoglobin A1C 9.5 % (4.0-6.0)
[2021-05-24 16:09] LABS: Free Thyroxine Index 2.6 ug/dL (5.93-13.13); T4 (Thyroxine) 8.5 ug/dl (5.53-11.0); Triiodothryronine (T3) Uptake 31 % (23.5-40.5)
[2021-05-24 16:23] LABS: Thyroid Stimulating Hormone 2.06 uIU/mL (0.465-4.68)
[2021-05-24 23:01] LABS: 25-OH Vitamin D, Total 27.6 ng/mL (30-100)
[2021-05-24 23:10] LABS: Alanine Aminotransferase 24 U/L (12-78); Albumin/Globulin Ratio 1.3 (1.1-1.8); Alkaline Phosphatase 108 U/L (38-126); Anion Gap 18.5 mEq/L (5-15); Aspartate Amino Transferase 27 U/L (14-36); Bilirubin,Total 0.3 mg/dl (0.2-1.3); Blood Urea Nitrogen 17 mg/dl (7-17); Calcium 9.3 mg/dl (8.4-10.2); Carbon Dioxide 22 mmol/L (22.0-30.0); Chloride 102 mmol/L (98-107); Estimated Glomerular Filt Rate 74 ml/min (>60); GFR (African American) 89 ML/MIN (>60); Globulin 3.2 g/dL (1.3-3.2); Glucose 140 mg/dl (74-100); Potassium 4.5 mmoL/L (3.5-5.1); Sodium 138 mmol/L (136-145); Total Protein,Serum 7.2 g/dl (6.3-8.2)
== END ==
PROVIDERS: Visit Provider Internal Medicine Adolescent Medicine
DX: E11.9 Type 2 diabetes mellitus without complications (principal); R23.2 Flushing; Z79.84 Long term (current) use of oral hypoglycemic drugs
CPT/HCPCS: 80053; 82306; 83036; 84436; 84443; 84479

== ENCOUNTER → 2022-05-03 11:45 | Outpatient (CLI) | payer BC, SELFPAY ==
[2022-05-03 19:33] LABS: Basophils # 0.1 K/mm3 (0-0.2); Eosinophils # 0.4 K/mm3 (0.0-0.4); Eosinophils % 4.6 % (0.1-12.0); Hematocrit 43.9 % (37.0-47.0); Lymphocytes # 2.9 K/mm3 (0.7-4.5); Lymphocytes % 30.5 % (10-50); Mean Corpuscular HGB Conc 31.9 g/dL (31.8-35.4); Mean Corpuscular Volume 84.8 fl (81-99); Mean Platelet Volume 10.4 fl (7.4-10.4); Monocytes # 0.5 K/mm3 (0.1-1.0); Monocytes % 5.2 % (1.7-9.3); Neutrophils # 5.6 K/mm3 (1.8-7.8); Neutrophils % 58.7 % (37.0-80.0); Platelet Count 489 K/mm3 (142-424); Red Blood Count 5.18 M/mm3 (4.20-5.40); Red Cell Distribution Width 15.2 % (11.5-17.5); White Blood Count 9.6 K/mm3 (4.8-10.8)
[2022-05-03 19:44] LABS: Alanine Aminotransferase 24 U/L (12-78); Albumin Level 3.9 g/dl (3.5-5.0); Albumin/Globulin Ratio 1.1 (1.1-1.8); Alkaline Phosphatase 149 U/L (38-126); Anion Gap 14.9 mEq/L (5-15); Aspartate Amino Transferase 29 U/L (14-36); Blood Urea Nitrogen 32 mg/dl (7-17); Calcium 8.8 mg/dl (8.4-10.2); Carbon Dioxide 24 mmol/L (22.0-30.0); Chloride 102 mmol/L (98-107); Chol/HDL Ratio 3.1 (1-3.5); Cholesterol 201 mg/dl (140-200); Estimated Glomerular Filt Rate 57 ml/min (>60); GFR (African American) 69 ML/MIN (>60); Globulin 3.4 g/dL (1.3-3.2); Glucose 145 mg/dl (74-100); HDL Cholesterol 65 mg/dl (40-60); Potassium 4.9 mmoL/L (3.5-5.1); Sodium 136 mmol/L (136-145); Total Protein,Serum 7.3 g/dl (6.3-8.2); Triglycerides 151 mg/dl (30-150); VLDL Cholesterol 30 mg/dL (0-40)
[2022-05-03 20:01] LABS: 25-OH Vitamin D, Total 17.8 ng/mL (30-100); Bilirubin,Total < 0.1 mg/dl (0.2-1.3)
[2022-05-03 20:15] LABS: Thyroid Stimulating Hormone 2.91 uIU/mL (0.465-4.68)
[2022-05-03 21:04] LABS: Hemoglobin A1C 6.4 % (4.0-6.0)
== END ==
PROVIDERS: PCP Nurse Practitioner Family; Visit Provider Nurse Practitioner Family
DX: I10 Essential (primary) hypertension (principal); E11.9 Type 2 diabetes mellitus without complications; E78.5 Hyperlipidemia, unspecified; R53.83 Other fatigue; E55.9 Vitamin D deficiency, unspecified
CPT/HCPCS: 80053; 80061; 82306; 83036; 84443; 85025

== ENCOUNTER 2022-05-30 15:26 | Emergency (ER) | payer BC, SELFPAY ==
--- NOTE | 2022-05-30 15:19 | ECG_ITS ---
APPROVED REPORT Exam: Resting ECG HR:63 bpm ECG Measurements Heart Rate 63 AXES WA 157 P 55 QRSd 86 QRS 19 QT 432 T 46 QTc 440 Conclusion SINUS RHYTHM NORMAL ECG UNCONFIRMED REPORT Electronically signed by : Chano Minor MD 05/30/2022 21:05:46
[2022-05-30 15:26] VITALS: BP 181/88; PULSE 65; RESP 18; TEMP 36.8; O2SAT 99; BMI 45.8
--- NOTE | 2022-05-30 15:42 | XR_ITS ---
FINAL REPORT CLINICAL HISTORY: CHEST PAIN COMPARISON: December 2020 FINDINGS: The heart size is normal. The mediastinum is within normal limits. There is no acute cardiopulmonary process. There is no pleural effusion. There is no pneumothorax. The bony thorax is intact. IMPRESSION: No acute cardiopulmonary process. Reviewed, Interpreted and Dictated by Victor Hugo Alexis III, MD Transcribed by Jerson Hurst Authenticated and [facility]
[2022-05-30 15:54] LABS: Anion Gap 14.4 mEq/L (5-15); Blood Urea Nitrogen 18 mg/dl (7-17); Calcium 10.4 mg/dl (8.4-10.2); Carbon Dioxide 33 mmol/L (22.0-30.0); Chloride 98 mmol/L (98-107); Creatinine Clearance Estimated 58 mL/min (50-200); Estimated Glomerular Filt Rate 64 ml/min (>60); GFR (African American) 78 ML/MIN (>60); Glucose 186 mg/dl (74-100); Potassium 4.4 mmoL/L (3.5-5.1); Sodium 141 mmol/L (136-145)
[2022-05-30 16:10] LABS: Troponin I < 0.01 ng/ml (0.00-0.034)
[2022-05-30 16:30] VITALS: BP 146/115; PULSE 67; RESP 11; O2SAT 97
[2022-05-30 16:32] LABS: Basophils # 0.1 K/mm3 (0-0.2); Basophils % 0.9 % (0.1-2.0); Eosinophils # 0.4 K/mm3 (0.0-0.4); Eosinophils % 4.8 % (0.1-12.0); Hematocrit 42.4 % (37.0-47.0); Hemoglobin 13.8 g/dL (12.2-16.2); Lymphocytes # 1.8 K/mm3 (0.7-4.5); Lymphocytes % 19.6 % (10-50); Mean Corpuscular HGB Conc 32.6 g/dL (31.8-35.4); Mean Corpuscular Hemoglobin 27.5 pg (27.0-31.2); Mean Corpuscular Volume 84.3 fl (81-99); Mean Platelet Volume 8.7 fl (7.4-10.4); Monocytes # 0.5 K/mm3 (0.1-1.0); Monocytes % 5.1 % (1.7-9.3); Neutrophils # 6.2 K/mm3 (1.8-7.8); Neutrophils % 69.6 % (37.0-80.0); Platelet Count 379 K/mm3 (142-424); Red Blood Count 5.02 M/mm3 (4.20-5.40); Red Cell Distribution Width 15.3 % (11.5-17.5)
[2022-05-30 17:00] VITALS: BP 135/90; PULSE 67; RESP 10; O2SAT 98
--- NOTE | 2022-05-30 17:45 | HMH.EDGENADL ---
Discharge Plan Disposition Patient Disposition: Home, Self-Care Condition: Good Prescriptions Prescriptions: No Action amlodipine 5 mg tablet 10 mg PO DAILY (DME) Accu-Chek Guide test strips Strip See Rx Instructions .ROUTE .MEDSUPPLY Qty: 10 Rx Instructions: As directed peg 3350-electrolytes [GaviLyte-C] 240-22.72-6.72 -5.84 gram recon soln 240 ml PO Q10M Qty: 240 0RF Rx Instructions: until fecal effluent is clear amlodipine 10 mg tablet 10 mg PO DAILY 90 Days Qty: 90 0RF atorvastatin 20 mg tablet 20 mg PO DAILY 90 Days Qty: 90 0RF carvedilol 12.5 mg tablet 12.5 mg PO BID 90 Days Qty: 180 0RF cholecalciferol (vitamin D3) 125 mcg (5,000 unit) tablet 125 mcg PO DAILY 90 Days Qty: 90 0RF duloxetine 60 mg capsule,delayed release(DR/EC) 60 mg PO DAILY 90 Days Qty: 90 0RF Jardiance 25 mg tablet 25 mg PO DAILY 90 Days Qty: 90 0RF furosemide 40 mg tablet 40 mg PO DAILY 90 Days Qty: 90 0RF lisinopril 20 mg tablet 20 mg PO BID 90 Days Qty: 180 0RF meloxicam 15 mg tablet 15 mg PO ONCE 90 Days Qty: 90 0RF montelukast 10 mg tablet 10 mg PO DAILY 90 Days Qty: 90 0RF omeprazole magnesium 20 mg tablet,delayed release (DR/EC) 20 mg PO BID 90 Days Qty: 180 0RF venlafaxine 150 mg tablet extended release 24hr 150 mg PO DAILY 90 Days Qty: 90 0RF metformin 1,000 MG tablet 1,000 mg PO BID aspirin 81 MG tablet,chewable 81 mg PO DAILY Referrals Follow up/Referrals: Carmine Ramsay MD [Primary Care Provider] - See instructions Activity Restrictions/Add. Instructions Additional Instructions/Restrictions: Follow-up with primary care provider, call tomorrow to make appointment. Return emergency department for worsening symptoms. Clinical Impressions Clinical Impression: Atypical chest pain, Vomiting, Abdominal pain, acute, epigastric Instructions Patient Instructions: DI for Atypical Chest Pain, DI for Vomiting -- Adult, DI for Epigastric Pain Discharge ED Provider: Huey Duran Adult [facility] General Chief complaint: Chest Pain Stated complaint: chest pain Time Seen by Provider: 05/30/22 17:46 Mode of Arrival: EMS Limitations: No Limitations Description of Symptoms (Recalled from ER Triage Doc. by RN): PT REPORTS MIDSTERNAL CHEST PAIN UNDER BILATERAL BREAST FOR 2-3 DAYS. SHORTNESS OF BREATH. REPORTS BILATERAL LEGS FEEL NUMB BUT WAS ABLE TO AMBULATE TO EMS STRETCHER. HAS CONSTANT TINGLING IN LEFT ARM History of Present Illness HPI narrative: Patient states that last night she began feeling ill. Last night she had vomiting and a burning sensation in her abdomen. She says that she seemed to get better and then after she ate a pot pie today symptoms recurred along with pain in both of her legs and burning in her left arm. Her abdominal burning radiated up under both breasts. Pain is now gone. She felt slightly short of breath. No diarrhea. No fever. She has had a cough for 3 weeks and both of her shoulder blades hurt when she coughs. States that she has a hiatal hernia and she thinks that her epigastric pain radiating up into her chest could be related to her hiatal hernia. Related Data Home Medications Medication Instructions Recorded Confirmed aspirin 81 mg chewable tablet 81 mg PO DAILY heart health 12/30/20 12/30/20 metformin 1,000 mg tablet 1,000 mg PO BID Diabetes 12/30/20 05/02/22 amlodipine 5 mg tablet 10 mg PO DAILY 05/02/22 blood sugar diagnostic (Accu-Chek #10 ea 05/02/22 05/02/22 Guide test strips) Previous Rx's Medication Instructions Recorded peg 3350 240 gram-electrolytes 240 ml PO Q10M #240 mL 05/08/22 22.72 gram-6.72 g-5.84 g powdr for soln (Gavilyte-C) amlodipine 10 mg tablet 10 mg PO DAILY 90 days #90 tabs 05/16/22 atorvastatin 20 mg tablet 20 mg PO DAILY high cholesterol 05/16/22 90 days #90 tabs carvedilol 12.5 mg tablet 12.5 mg PO BID Hypertension 90 05/16/22
--- NOTE | 2022-05-30 17:52 | PC.NURSE ---
ED MD AT BEDSIDE FOR EVALUATION
[2022-05-30 18:17] LABS: Alanine Aminotransferase 28 U/L (12-78); Albumin Level 4.6 g/dl (3.5-5.0); Alkaline Phosphatase 144 U/L (38-126); Aspartate Amino Transferase 41 U/L (14-36); Bilirubin,Direct 0.2 mg/dl (0.0-0.4); Bilirubin,Indirect 0.3 mg/dL (0.0-0.9); Bilirubin,Total 0.5 mg/dl (0.2-1.3); Bilirubin,Unconjugated 0.3 mg/dL (0.0-1.1); Lipase 53 U/L (23-300); Total Protein,Serum 8.4 g/dl (6.3-8.2)
[2022-05-30 18:54] LABS: Troponin I < 0.01 ng/ml (0.00-0.034)
[2022-05-30 20:04] VITALS: BP 158/78; PULSE 68; RESP 20; TEMP 36.7; O2SAT 98
== END 2022-05-30 20:07 | disposition home or self-care (01) ==
PROVIDERS: Emergency Provider Emergency Medicine; PCP Family Medicine
DX: R10.13 Epigastric pain (principal); R11.10 Vomiting, unspecified; R07.89 Other chest pain; Z79.84 Long term (current) use of oral hypoglycemic drugs; Z88.0 Allergy status to penicillin; E11.9 Type 2 diabetes mellitus without complications; F41.9 Anxiety disorder, unspecified; F32.A Depression, unspecified; E78.5 Hyperlipidemia, unspecified
CPT/HCPCS: 36415; 71045; 80048; 80076; 83690; 84484; 85025; 93005; 99283

== ENCOUNTER → 2022-06-07 13:40 | Outpatient (CLI) | payer BC, SELFPAY | PROVIDERS: PCP Nurse Practitioner Family; Visit Provider Nurse Practitioner Family | DX: R10.9 Unspecified abdominal pain (principal) | CPT/HCPCS: 87086 ==

== ENCOUNTER → 2022-07-13 06:37 | Outpatient (CLI) | payer BC, SELFPAY ==
--- NOTE | 2022-07-13 06:38 | CA_ITS ---
APPROVED REPORT Exam: Pharmacologic Technologist: Anabell Pan, Ht: 5 ft 4 in Wt: 260 lbs BSA: 2.19 m2 HR: 55 bpm BP: 132/66 mmHg Rhythm: sinus oneyda, otherwise normal Indications: SOB, CP Medical History Medical History: HTN, , Hyperlipidemia, Diabetes Medications: Amlodipine,,,,, Lisinopril,,,,, Omeprazole,,,,, Aspirin,,,,, Venlaflaxine,,,,, Metformin,,,,, Atorvastatin,,,,, Carvedilol,,,,, Lasix,,,,, Montelukast,,,,, MeLOXICAM,,,,, Vit D3,,,,, Cardiac Risk Factors: HTN, Hyperlipidemia, Diabetes (non-insulin), FHX of CAD Stress Test Details Test: LEXISCAN HR Resting HR: 59 bpm Max Heart Rate (APMHR): 161.107069 bpm Max HR Achieved: 75 bpm Target HR (85% APMHR): 136.069939 bpm % of APMHR: 46.58 Recovery HR: 65 bpm BP Resting BP: 132/66 mmHg Max BP: 132/66 mmHg Recovery BP: 129.0/68.0 mmHg ECG Resting ECG: sinus oneyda, otherwise normal Clinical Exercise duration: 04:00 min Highest Stage Achieved: Exercise capacity: 1.0 METs Stress ECG Conclusion During lexiscan pt experinced mild SOA, stomach and head discomfort. No CP noted. Occasional PAC noted. No significant ST changes. Unremarkable lexiscan stress. Myoview images reported separately. Test Summary REST . . . . . . . Sitting REST 02:46 . . 59 . 132/ 66 . . Stage 1 01:00 . . 67 . . . . Stage 2 01:00 . . 75 . . . . Stage 3 01:00 . . 67 . 122/ 56 . . Stage 4 01:00 . . 63 . 126/ 56 . Stop exercise at 04:00 RECOVERY 01:00 . . 64 . 111/ 60 . . RECOVERY 02:00 . . 64 . 111/ 60 . . RECOVERY 03:00 . . 62 . 129/ 68 . . RECOVERY 03:22 . . 63 . 129/ 68 . . Electronically signed by : Conor Keith MD 07/14/2022 08:25:49
--- NOTE | 2022-07-13 06:38 | NM_ITS ---
APPROVED REPORT Exam: Nuclear Stress Test Indication: short of breath Patient Location: Outpatient Stress Tech: Anabell ADAMS Tech:Gina Lyons CLAYStan RT(R)(N) Ht: 5 ft 3 in Wt: 257 lbs Bra Size: 2x HR: 59 bpm BP: 132/66 mmHg BSA: 2.15 m2 TID: 1.45 BMI: 45.5 History: short of breath Procedure: Patient received a 0.4 mg of intravenous Lexiscan, resting heart rate 59 bpm, resting blood pressure 132/66 mmHg, with Lexiscan maximum heart rate achived was 75 bpm which is Less than 85 % of the maximum predicted heart rate and blood pressure was 132/66 mmHg. With Lexiscan, patient denied any complaint of chest pain. pt was unable to lay on her belly for prone images Electrocardiogram Resting electrocardiogram shows sinus rhythm, with Lexiscan there is less than 1.[address] segment depression noted from the baseline EKG. The EKG portion of the Lexiscan is nondiagnostic. Cardiac Stress and Resting SPECT Images: Cardiac Stress and Resting SPECT images were obtained using technetium 99m Myoview 30.1 mCi stress and 10.22 mCi at rest. Gated SPECT analysis of segmental wall motion and calculation of the ejection fraction also done. Cardiac stress and rest SPECT may show reversible ischemia involving the anteroseptal wall, there is transient ischemic dilatation of the left ventricle also seen. Computer derived ejection fraction is 63% with no regional wall motion abnormality, right ventricle is normal size and contractility. Conclusion: 1. The EKG portion of the Lexiscan is nondiagnostic. 2. Scintigraphic evidence of reversible ischemia seen in the anteroseptal wall, computer derived ejection fraction is 63% with no regional wall motion abnormality, right ventricle is normal size and contractility, there is transient ischemic dilatation of the left ventricle noted. 3. Abnormal Lexiscan Myoview study Electronically signed by : Conor Keith MD 07/14/2022 08:28:36
== END ==
LOC: RAD 06:38
PROVIDERS: PCP Nurse Practitioner Family; Visit Provider Nurse Practitioner Family
DX: R07.89 Other chest pain (principal); I10 Essential (primary) hypertension
CPT/HCPCS: 78452; 93017; A9502; J2785

== ENCOUNTER → 2022-07-20 10:37 | Outpatient (CLI) | payer BC, SELFPAY ==
[2022-07-20 11:07] LABS: Basophils % 0.6 % (0.1-2.0); Eosinophils # 0.5 K/mm3 (0.0-0.4); Eosinophils % 7.2 % (0.1-12.0); Hemoglobin 13.3 g/dL (12.2-16.2); Lymphocytes # 2.1 K/mm3 (0.7-4.5); Lymphocytes % 30.2 % (10-50); Mean Corpuscular HGB Conc 31.6 g/dL (31.8-35.4); Mean Corpuscular Volume 85.4 fl (81-99); Mean Platelet Volume 9.3 fl (7.4-10.4); Monocytes # 0.3 K/mm3 (0.1-1.0); Monocytes % 4.7 % (1.7-9.3); Neutrophils # 4.1 K/mm3 (1.8-7.8); Neutrophils % 57.3 % (37.0-80.0); Platelet Count 396 K/mm3 (142-424); Red Blood Count 4.92 M/mm3 (4.20-5.40); Red Cell Distribution Width 15.3 % (11.5-17.5); White Blood Count 7.1 K/mm3 (4.8-10.8)
[2022-07-20 11:28] LABS: Alanine Aminotransferase 20 U/L (12-78); Albumin Level 4.2 g/dl (3.5-5.0); Alkaline Phosphatase 155 U/L (38-126); Anion Gap 7.9 mEq/L (5-15); Aspartate Amino Transferase 25 U/L (14-36); Bilirubin,Direct 0.1 mg/dl (0.0-0.4); Bilirubin,Indirect 0.2 mg/dL (0.0-0.9); Bilirubin,Total 0.3 mg/dl (0.2-1.3); Bilirubin,Unconjugated 0.2 mg/dL (0.0-1.1); Blood Urea Nitrogen 21 mg/dl (7-17); Calcium 9.4 mg/dl (8.4-10.2); Carbon Dioxide 30 mmol/L (22.0-30.0); Chloride 104 mmol/L (98-107); Chol/HDL Ratio 2.3 (1-3.5); Cholesterol 182 mg/dl (140-200); Estimated Glomerular Filt Rate 64 ml/min (>60); GFR (African American) 78 ML/MIN (>60); Glucose 140 mg/dl (74-100); HDL Cholesterol 79 mg/dl (40-60); Potassium 3.9 mmoL/L (3.5-5.1); Sodium 138 mmol/L (136-145); Total Protein,Serum 7.2 g/dl (6.3-8.2); Triglycerides 95 mg/dl (30-150); VLDL Cholesterol 19 mg/dL (0-40)
[2022-07-20 11:39] LABS: Direct LDL Cholesterol 76.16 mg/dL (100-129)
[2022-07-20 11:45] LABS: Free T4 (Free Thyroxine) 0.87 ng/dl (0.78-2.19)
[2022-07-20 11:58] LABS: Thyroid Stimulating Hormone 2.33 uIU/mL (0.465-4.68)
== END ==
PROVIDERS: PCP Nurse Practitioner Family; Visit Provider Nurse Practitioner
DX: R06.00 Dyspnea, unspecified (principal); R06.01 Orthopnea; I20.8 Other forms of angina pectoris; R94.30 Abnormal result of cardiovascular function study, unspecified
CPT/HCPCS: 36415; 80048; 80061; 80076; 83735; 84439; 84443; 85025

== ENCOUNTER 2022-07-27 08:43 | Day surgery (SDC) | payer BC, SELFPAY ==
[2022-07-27] VITALS (11 sets, daily range): BP systolic 129–153; BP diastolic 55–96; PULSE 52–63; RESP 16–20; O2SAT 95–100; BMI 45.4
--- NOTE | 2022-07-27 07:24 | IR_ITS ---
APPROVED REPORT Patient Location: Outpatient Department Specialist: MARLIN Díaz RT (R) PROCEDURES Left heart catheterization Left ventriculogram Selective coronary angiogram INDICATION High risk abnormal Myoview, Angina pectoris Informed consent was obtained prior to the procedure. COMPLICATIONS None Estimated Blood Loss: Less than 10 ML TECHNIQUE One percent lidocaine used to anesthetize the right anterior aspect of the wrist. The right radial artery was accessed via the Seldinger technique. A 6 [place] sheath was placed in the right radial artery. 2.5 mg of verapamil, 800 mcg of nitroglycerin, 1mg Lidocaine and 5000 U Heparin were given through the arterial sheath. The papa catheter and 5 [place] JL 3.5 catheter were also used to perform left heart catheterization, left ventriculogram and selective coronary angiogram. At the end of the procedure the sheath was removed good hemostasis was achieved using Traclet band, patient was transferred to the postop holding area in stable condition. ANGIOGRAPHIC RESULTS The left main artery Normal The left anterior descending artery Normal The circumflex artery Normal The right coronary artery Dominant normal The EDWARDS ventriculogram reveals Slightly hyperdynamic 70% The left ventricular end-diastolic pressure 20 mmHg IMPRESSION Normal coronary arteries Hyperdynamic ventricle with elevated LVEDP consistent with diastolic dysfunction PLAN 1. Treatment of diastolic dysfunction Electronically signed by : Juan Floyd MD 07/27/2022 11:03:46
--- NOTE | 2022-07-27 08:50 | CA_ITS ---
APPROVED REPORT EXAM: Comprehensive 2D, Doppler, and color-flow Echocardiogram Fugitive Detective: Sarah Tucker CRT Ht: 5 ft 4 in Wt: 260lbs BSA: 2.19 BP: 130/67 mmHg Indications: Chest Pain, Diabetes, Hyperlipidemia, Hypertension/HDD 2D Dimensions LVOT 1.66 cm (M/F) 1.5-2.5 LA Volume 36.10 mL LA Volume Index 16.10 mL/m2 (M/F) 16-34 M-Mode Dimensions RVDd 2.28 cm (0.9-2.6) LA Diam 3.44 cm (1.9-4.0) LVDd 4.90 cm (3.5-5.7) Ao Diam 3.03 cm (2.0-3.7) LVDs 2.69 cm (3.5-5.7) IVSd 0.87 cm (0.6-1.1) PWd 1.18 cm (0.6-1.1) EF (Teich) 76.20% FS 45.10% EDV (Teich) 112.80 mL TAPSE 2.09 (<1.7) ESV (Teich) 26.80 mL LV Diastology E Decel Time 240.00 (160-240 msec) E/A Ratio 1.11 MED E' 7.60 (< 7 cm/sec) MED A' 6.90 cm/s E'/MED E' Ratio 12.78 (>14) LAT E' 5.40 (<10 cm/sec) LAT A' 8.30 cm/s E/LAT E' Ratio 17.98 (>14) Aortic Valve AO Peak GR. 7.60 mmHg Mitral Valve MV E Max Rob. 97.00 (40-130 cm/s) MV A Velocity 88.00 (40-130 cm/s) E/A Ratio 1.11 MV Decel. Time 240.00 (160-240 ms) MV PHT 70.00 ms Pulmonary Valve PV Peak Velocity 112.00 (50-150 cm/s) Tricuspid Valve TR P. Velocity 225.00 cm/s RAP Estimate 10.00 mmHg RVSP 30.20 mmHg Left Ventricle Left atrium is mildly enlarged, left ventricle is normal size, mild concentric left ventricular hypertrophy, estimated ejection fraction 55% with no regional wall motion abnormality, grade 2 diastolic dysfunction seen without tissue Doppler evidence of raise left atrial pressure. Right Ventricle Right atrium and right ventricle are normal size and contractility. Aortic Valve Aortic valve is thickened and calcified without aortic stenosis or aortic insufficiency. Mitral Valve Mitral valve has mild mitral annular calcification, there is no mitral stenosis, there is mild mitral regurgitation. Tricuspid Valve Tricuspid valve grossly normal, there is mild tricuspid regurgitation, tricuspid regurgitation jet velocity is inadequate for calculation of the right ventricular systolic pressure. Pulmonic Valve Pulmonic valve is poorly visualized. Great Vessels Aortic root is normal size. Inferior vena cava is poorly visualized. Pericardium No significant pericardial effusion noted. Conclusion 1. Mildly enlarged left atrium, normal left ventricular size, mild concentric left ventricular hypertrophy, estimated ejection fraction 55% with no regional wall motion abnormality, grade 1 diastolic dysfunction seen without tissue Doppler evidence of reduced left atrial pressure. 2. Mild mitral and tricuspid regurgitation. 3. No significant pericardial effusion noted. 4. Inferior vena cava is poorly visualized. Electronically signed by : Conor Keith MD 07/28/2022 16:21:16
== END 2022-07-27 14:00 | disposition home or self-care (01) ==
LOC: CATHLAB 08:46
PROVIDERS: PCP Nurse Practitioner Family; Visit Provider Internal Medicine
DX: R07.89 Other chest pain (principal); I10 Essential (primary) hypertension; Z79.899 Other long term (current) drug therapy; E11.9 Type 2 diabetes mellitus without complications; Z79.84 Long term (current) use of oral hypoglycemic drugs; Z82.49 Family history of ischemic heart disease and other diseases of the circulatory system; E78.5 Hyperlipidemia, unspecified; I25.118 Atherosclerotic heart disease of native coronary artery with other forms of angina pectoris
CPT/HCPCS: 93306; 93458; 99152; C1725; C1769; J1644; Q9967

== ENCOUNTER → 2022-08-30 14:29 | Outpatient (CLI) | payer BC, SELFPAY | LOC: RT 14:30 | PROVIDERS: PCP Family Medicine; Visit Provider Nurse Practitioner | DX: R06.00 Dyspnea, unspecified (principal); R06.01 Orthopnea; R07.89 Other chest pain; R00.2 Palpitations; I20.8 Other forms of angina pectoris | CPT/HCPCS: 93225 ==

== ENCOUNTER → 2022-12-27 14:11 | Outpatient (CLI) | payer BC, SELFPAY ==
--- NOTE | 2022-12-27 14:19 | XR_ITS ---
FINAL REPORT CLINICAL HISTORY: RT FOOT PAIN FINDINGS: Right foot Three views were obtained. There is no acute fracture or dislocation. There are moderate hypertrophic changes of the 1st metatarsophalangeal joint. Small plantar spur is identified. IMPRESSION: Moderate hypertrophic changes of the 1st metatarsophalangeal joint. Reviewed, Interpreted and Dictated by Nikolai Hanson MD Transcribed by Keli Coronado Authenticated and [facility]
== END ==
LOC: RAD 14:12
PROVIDERS: PCP Family Medicine; Visit Provider Family Medicine
DX: M79.671 Pain in right foot (principal)
CPT/HCPCS: 73620

== ENCOUNTER → 2023-01-17 17:00 | Outpatient (CLI) | payer BC, SELFPAY ==
[2023-01-17 17:13] LABS: Basophils % 0.3 % (0.1-2.0); Eosinophils # 0.5 K/mm3 (0.0-0.4); Eosinophils % 6.2 % (0.1-12.0); Hematocrit 40.5 % (37.0-47.0); Hemoglobin 13.2 g/dL (12.2-16.2); Mean Corpuscular HGB Conc 32.6 g/dL (31.8-35.4); Mean Corpuscular Hemoglobin 27.1 pg (27.0-31.2); Mean Platelet Volume 9.5 fl (7.4-10.4); Monocytes # 0.5 K/mm3 (0.1-1.0); Monocytes % 6.8 % (1.7-9.3); Neutrophils # 4.6 K/mm3 (1.8-7.8); Neutrophils % 60.7 % (37.0-80.0); Platelet Count 350 K/mm3 (142-424); Red Blood Count 4.87 M/mm3 (4.20-5.40); Red Cell Distribution Width 14.4 % (11.5-17.5); White Blood Count 7.7 K/mm3 (4.8-10.8)
[2023-01-17 17:19] LABS: Alanine Aminotransferase 23 U/L (12-78); Albumin Level 3.8 g/dl (3.5-5.0); Albumin/Globulin Ratio 1.2 (1.1-1.8); Alkaline Phosphatase 124 U/L (38-126); Anion Gap 14.4 mEq/L (5-15); Aspartate Amino Transferase 30 U/L (14-36); Bilirubin,Total 0.5 mg/dl (0.2-1.3); Blood Urea Nitrogen 21 mg/dl (7-17); Calcium 8.9 mg/dl (8.4-10.2); Carbon Dioxide 28 mmol/L (22.0-30.0); Chloride 101 mmol/L (98-107); Chol/HDL Ratio 2.7 (1-3.5); Cholesterol 216 mg/dl (140-200); Estimated Glomerular Filt Rate 64 ml/min (>60); GFR (African American) 78 ML/MIN (>60); Globulin 3.3 g/dL (1.3-3.2); Glucose 155 mg/dl (74-100); HDL Cholesterol 79 mg/dl (40-60); Potassium 4.4 mmoL/L (3.5-5.1); Sodium 139 mmol/L (136-145); Total Protein,Serum 7.1 g/dl (6.3-8.2); Triglycerides 142 mg/dl (30-150); VLDL Cholesterol 28 mg/dL (0-40)
[2023-01-17 17:29] LABS: Direct LDL Cholesterol 103.07 mg/dL (100-129)
[2023-01-17 17:34] LABS: Hemoglobin A1C 7.1 % (4.0-6.0)
[2023-01-17 18:25] LABS: Creatinine,Urine Random 68 mg/dL (Not Estab.); Microalbumin/Creatinine Ratio 51.1
== END ==
PROVIDERS: PCP Nurse Practitioner Family; Visit Provider Nurse Practitioner Family
DX: Z00.00 Encounter for general adult medical examination without abnormal findings (principal); I10 Essential (primary) hypertension; E11.9 Type 2 diabetes mellitus without complications; Z79.84 Long term (current) use of oral hypoglycemic drugs
CPT/HCPCS: 80053; 80061; 82043; 82570; 83036; 85025

== ENCOUNTER → 2023-03-07 23:18 | Outpatient (CLI) | payer BC, SELFPAY ==
[2023-03-07 17:44] LABS: Anion Gap 11.2 mEq/L (5-15); Blood Urea Nitrogen 20 mg/dl (7-17); Calcium 8.9 mg/dl (8.4-10.2); Carbon Dioxide 31 mmol/L (22.0-30.0); Chloride 102 mmol/L (98-107); Estimated Glomerular Filt Rate 51 ml/min (>60); GFR (African American) 61 ML/MIN (>60); Glucose 168 mg/dl (74-100); Potassium 4.2 mmoL/L (3.5-5.1); Sodium 140 mmol/L (136-145)
[2023-03-07 18:42] LABS: Hemoglobin A1C 7.7 % (4.0-6.0)
== END ==
PROVIDERS: PCP Family Medicine; Visit Provider Family Medicine
DX: E11.9 Type 2 diabetes mellitus without complications (principal); R82.90 Unspecified abnormal findings in urine; B96.29 Other Escherichia coli [E. coli] as the cause of diseases classified elsewhere; Z79.84 Long term (current) use of oral hypoglycemic drugs
CPT/HCPCS: 80048; 83036; 87086; 87088; 87186

== ENCOUNTER 2023-05-10 14:56 | Emergency (ER) | payer BC, SELFPAY ==
[2023-05-10 14:56] VITALS: BP 99/53; PULSE 58; RESP 12; TEMP 36.6; O2SAT 96; BMI 47.5
--- NOTE | 2023-05-10 14:56 | ECG_ITS ---
APPROVED REPORT Exam: Resting ECG HR:58 bpm ECG Measurements Heart Rate 58 AXES [place] 159 P 38 QRSd 101 QRS 32 QT 431 T 48 QTc 429 Conclusion SINUS BRADYCARDIA BORDERLINE ECG UNCONFIRMED REPORT Electronically signed by : Chano Minor MD 05/12/2023 11:04:51
--- NOTE | 2023-05-10 15:10 | PC.NURSE ---
Dr. Kaur at [facility] for pt eval
--- NOTE | 2023-05-10 15:17 | XR_ITS ---
FINAL REPORT CLINICAL HISTORY: cp, left COMPARISON: None FINDINGS: A single portable view of the chest was obtained. The heart size and pulmonary vascularity are within normal limits. The mediastinum is within normal limits. There is atelectasis and/or scar present in the left lung field. The bony thorax is intact. IMPRESSION: Mild left atelectasis and/or scar. Otherwise unremarkable chest x-ray. Reviewed, Interpreted and Dictated by Victor Hugo Alexis III, MD Transcribed by Roseann Cedeno Authenticated and [facility]
--- NOTE | 2023-05-10 15:17 | HMH.EDGENADL ---
Discharge Plan Disposition Patient Disposition: Home, Self-Care Prescriptions Prescriptions: No Action metformin 1,000 mg tablet 1,000 mg PO BID Qty: 90 1RF Hold Instructions: Resume on 07/30/22. HOLD FOR TWO DAYS (DME) Accu-Chek Guide test strips Strip See Rx Instructions .ROUTE .MEDSUPPLY Qty: 10 Rx Instructions: As directed methocarbamol 500 mg tablet 500 mg PO TID PRN (Reason: muscle spasm) Qty: 30 1RF Jardiance 25 mg tablet 25 mg PO DAILY 30 Days Qty: 30 1RF spironolactone [Aldactone] 25 mg tablet 25 mg PO DAILY Qty: 30 2RF furosemide 40 mg tablet 40 mg PO BID Qty: 180 3RF amlodipine 10 mg tablet 10 mg PO DAILY 30 Days Qty: 30 1RF atorvastatin 20 mg tablet 20 mg PO DAILY 30 Days Qty: 30 1RF cholecalciferol (vitamin D3) 125 mcg (5,000 unit) tablet 125 mcg PO DAILY 30 Days Qty: 30 1RF meloxicam 15 mg tablet 15 mg PO ONCE 30 Days Qty: 30 1RF omeprazole magnesium 20 mg tablet,delayed release (DR/EC) 20 mg PO BID 30 Days Qty: 60 1RF carvedilol 25 mg tablet 25 mg PO BID 90 Days Qty: 180 0RF lisinopril 20 mg tablet 20 mg PO BID 90 Days Qty: 180 0RF venlafaxine 150 mg tablet extended release 24hr 150 mg PO DAILY 90 Days Qty: 90 0RF duloxetine 60 mg capsule,delayed release(DR/EC) 60 mg PO DAILY 90 Days Qty: 90 0RF aspirin 81 MG tablet,chewable 81 mg PO DAILY Referrals Follow up/Referrals: Fabby Ryder APRN [Nurse Practitioner] - See instructions Carmine Ramsay MD [Primary Care Provider] - See instructions Activity Restrictions/Add. Instructions Additional Instructions/Restrictions: Call your family doctor to establish care for this visit to the emergency department and schedule follow-up within 48 hours to ensure improvement. Cardiology information but here. Also follow-up with your family doctor regarding anxiety management. If you have any worsening of your condition or any other concerning signs or symptoms, return to the emergency department or your primary care doctor for further evaluation. Follow-up with cardiology regarding the symptoms. Clinical Impressions Clinical Impression: Chest pain, Anxiety Discharge ED Provider: Ciaran Kaur General Adult HPI General Chief complaint: Chest Pain Stated complaint: CP Time Seen by Provider: 05/10/23 15:05 Mode of Arrival: Ambulatory Source of Information: Patient Limitations: No Limitations Description of Symptoms (Recalled from ER Triage Doc. by RN): c/o chest pain for 2 days, states it hurts with movement History of Present Illness HPI narrative: 58-year-old female with history of hypertension, hyperlipidemia, GERD, esophagitis, anxiety presenting with chest pressure. Patient states chest pain/pressure has been going on for about 5 days now. Spurred while having stressful conversation with [id number]. Has been intermittently present. Left-sided, radiates medially to sternum. Not associate with shortness of breath, nausea or vomiting, diaphoresis, weakness, or any neurologic deficits. She states that she has noticed pain is worse with deep breaths. Related Data Home Medications Medication Instructions Recorded Confirmed aspirin 81 mg chewable tablet 81 mg PO DAILY [facility] 12/30/20 04/19/23 blood sugar diagnostic (Accu-Chek #10 ea 05/02/22 04/19/23 Guide test strips) Previous Rx's Medication Instructions Recorded metformin 1,000 mg tablet 1,000 mg PO BID Diabetes #90 tabs 06/07/22 methocarbamol 500 mg tablet 500 mg PO TID PRN muscle spasm #30 10/03/22 tabs furosemide 40 mg tablet 40 mg PO BID Diuretic #180 tabs 11/01/22 spironolactone 25 mg tablet 25 mg PO DAILY #30 tabs 11/01/22 (Aldactone) amlodipine 10 mg tablet 10 mg PO DAILY . 30 days #30 tabs 11/23/22 atorvastatin 20 mg tablet 20 mg PO DAILY Cholesterol 30 days 11/23/22 #30 tabs cholecalciferol (vitamin D3) 125 125 mcg PO DAILY Supplement 30 11/23/22 mcg (5,000 u
[2023-05-10 15:26] LABS: Basophils # 0.1 K/mm3 (0-0.2); Basophils % 0.7 % (0.1-2.0); Eosinophils # 0.5 K/mm3 (0.0-0.4); Eosinophils % 5.9 % (0.1-12.0); Hematocrit 37.2 % (37.0-47.0); Hemoglobin 12.5 g/dL (12.2-16.2); Lymphocytes # 2.6 K/mm3 (0.7-4.5); Mean Corpuscular HGB Conc 33.7 g/dL (31.8-35.4); Mean Corpuscular Hemoglobin 28.1 pg (27.0-31.2); Mean Corpuscular Volume 83.6 fl (81-99); Mean Platelet Volume 9.1 fl (7.4-10.4); Monocytes # 0.5 K/mm3 (0.1-1.0); Monocytes % 5.4 % (1.7-9.3); Platelet Count 348 K/mm3 (142-424); Red Blood Count 4.45 M/mm3 (4.20-5.40); Red Cell Distribution Width 15.1 % (11.5-17.5); White Blood Count 8.6 K/mm3 (4.8-10.8)
[2023-05-10 15:30] VITALS: BP 101/42; RESP 11; O2SAT 99
[2023-05-10 15:38] LABS: Alanine Aminotransferase 26 U/L (12-78); Albumin Level 3.9 g/dl (3.5-5.0); Albumin/Globulin Ratio 1.1 (1.1-1.8); Alkaline Phosphatase 102 U/L (38-126); Anion Gap 12.5 mEq/L (5-15); Aspartate Amino Transferase 36 U/L (14-36); Bilirubin,Total 0.3 mg/dl (0.2-1.3); Blood Urea Nitrogen 17 mg/dl (7-17); Calcium 8.7 mg/dl (8.4-10.2); Carbon Dioxide 28 mmol/L (22.0-30.0); Chloride 99 mmol/L (98-107); Creatinine Clearance Estimated 49 mL/min (50-200); Estimated Glomerular Filt Rate 57 ml/min (>60); GFR (African American) 68 ML/MIN (>60); Globulin 3.7 g/dL (1.3-3.2); Glucose 144 mg/dl (74-100); Potassium 3.5 mmoL/L (3.5-5.1); Sodium 136 mmol/L (136-145); Total Protein,Serum 7.6 g/dl (6.3-8.2)
--- NOTE | 2023-05-10 15:42 | PC.NURSE ---
Pt ambulatory to bathroom and back to bed. Water provided to pt. No other needs voiced. Call light remains within reach.
[2023-05-10 15:50] LABS: Troponin I < 0.01 ng/ml (0.00-0.034)
[2023-05-10 16:00] VITALS: BP 107/59; PULSE 57; RESP 13; O2SAT 98
[2023-05-10 16:30] VITALS: BP 120/67; PULSE 54; RESP 15; O2SAT 99
[2023-05-10 17:00] VITALS: BP 111/61; PULSE 59; RESP 11; O2SAT 100
[2023-05-10 17:17] LABS: Troponin I < 0.01 ng/ml (0.00-0.034)
--- NOTE | 2023-05-10 17:20 | PC.NURSE ---
Dr. Kaur at to update pt on results
[2023-05-10 17:27] VITALS: BP 111/61; PULSE 60; RESP 16; TEMP 36.6; O2SAT 100
== END 2023-05-10 17:28 | disposition home or self-care (01) ==
PROVIDERS: Emergency Provider Emergency Medicine; PCP Family Medicine
DX: R07.89 Other chest pain (principal); R00.1 Bradycardia, unspecified; F41.1 Generalized anxiety disorder; I10 Essential (primary) hypertension; E78.5 Hyperlipidemia, unspecified; K21.00 Gastro-esophageal reflux disease with esophagitis, without bleeding; E11.9 Type 2 diabetes mellitus without complications; I20.9 Angina pectoris, unspecified; F32.A Depression, unspecified; Z79.84 Long term (current) use of oral hypoglycemic drugs; Z87.891 Personal history of nicotine dependence
CPT/HCPCS: 71045; 80053; 84484; 85025; 93005; 96374; 99284

== ENCOUNTER → 2023-06-26 07:57 | Outpatient (CLI) | payer BC, SELFPAY ==
[2023-06-26 16:39] LABS: Basophils # 0.1 K/mm3 (0-0.2); Basophils % 0.6 % (0.1-2.0); Eosinophils # 0.5 K/mm3 (0.0-0.4); Eosinophils % 5.7 % (0.1-12.0); Hematocrit 43.6 % (37.0-47.0); Hemoglobin 13.9 g/dL (12.2-16.2); Lymphocytes # 2.8 K/mm3 (0.7-4.5); Lymphocytes % 30.4 % (10-50); Mean Corpuscular HGB Conc 31.8 g/dL (31.8-35.4); Mean Corpuscular Hemoglobin 27.4 pg (27.0-31.2); Mean Corpuscular Volume 86.1 fl (81-99); Mean Platelet Volume 9.5 fl (7.4-10.4); Monocytes # 0.4 K/mm3 (0.1-1.0); Monocytes % 4.2 % (1.7-9.3); Neutrophils # 5.5 K/mm3 (1.8-7.8); Neutrophils % 59.1 % (37.0-80.0); Platelet Count 368 K/mm3 (142-424); Red Blood Count 5.07 M/mm3 (4.20-5.40); White Blood Count 9.3 K/mm3 (4.8-10.8)
[2023-06-26 16:44] LABS: Alanine Aminotransferase 25 U/L (12-78); Albumin Level 4.2 g/dl (3.5-5.0); Albumin/Globulin Ratio 1.2 (1.1-1.8); Alkaline Phosphatase 108 U/L (38-126); Anion Gap 13.1 mEq/L (5-15); Aspartate Amino Transferase 46 U/L (14-36); Bilirubin,Total 0.5 mg/dl (0.2-1.3); Blood Urea Nitrogen 20 mg/dl (7-17); Calcium 8.7 mg/dl (8.4-10.2); Carbon Dioxide 22 mmol/L (22.0-30.0); Chloride 106 mmol/L (98-107); Cholesterol 185 mg/dl (140-200); Estimated Glomerular Filt Rate 57 ml/min (>60); GFR (African American) 68 ML/MIN (>60); Globulin 3.6 g/dL (1.3-3.2); Glucose 135 mg/dl (74-100); HDL Cholesterol 62 mg/dl (40-60); Potassium 4.1 mmoL/L (3.5-5.1); Sodium 137 mmol/L (136-145); Total Protein,Serum 7.8 g/dl (6.3-8.2); Triglycerides 171 mg/dl (30-150); VLDL Cholesterol 34 mg/dL (0-40)
[2023-06-26 16:54] LABS: Direct LDL Cholesterol 86.92 mg/dL (100-129)
[2023-06-26 17:14] LABS: Thyroid Stimulating Hormone 2.17 uIU/mL (0.465-4.68)
[2023-06-26 18:32] LABS: Hemoglobin A1C 6.7 % (4.0-6.0)
== END ==
PROVIDERS: PCP Nurse Practitioner Family; Visit Provider Nurse Practitioner Family
DX: E11.9 Type 2 diabetes mellitus without complications (principal); E78.5 Hyperlipidemia, unspecified; I10 Essential (primary) hypertension; E55.9 Vitamin D deficiency, unspecified; Z68.42 Body mass index [BMI] 45.0-49.9, adult; Z79.84 Long term (current) use of oral hypoglycemic drugs; Z87.891 Personal history of nicotine dependence
CPT/HCPCS: 80053; 80061; 82306; 83036; 84443; 85025

== ENCOUNTER 2023-10-02 16:46 | Outpatient (CLI) | payer BC, SELFPAY ==
[2023-10-02 16:34] LABS: Alanine Aminotransferase 18 U/L (12-78); Albumin Level 4.1 g/dl (3.5-5.0); Albumin/Globulin Ratio 1.3 (1.1-1.8); Alkaline Phosphatase 117 U/L (38-126); Anion Gap 14.3 mEq/L (5-15); Aspartate Amino Transferase 30 U/L (14-36); Bilirubin,Total 0.4 mg/dl (0.2-1.3); Blood Urea Nitrogen 24 mg/dl (7-17); Calcium 9.4 mg/dl (8.4-10.2); Carbon Dioxide 27 mmol/L (22.0-30.0); Chloride 103 mmol/L (98-107); Estimated Glomerular Filt Rate 51 ml/min (>60); GFR (African American) 61 ML/MIN (>60); Globulin 3.1 g/dL (1.3-3.2); Glucose 136 mg/dl (74-100); Magnesium 2.2 mg/dl (1.6-2.3); Potassium 4.3 mmoL/L (3.5-5.1); Sodium 140 mmol/L (136-145); Total Protein,Serum 7.2 g/dl (6.3-8.2)
[2023-10-02 17:20] LABS: Hemoglobin A1C 6.8 % (4.0-6.0)
== END 2023-10-02 23:59 ==
LOC: LAB.DROPOF 16:47
PROVIDERS: PCP Nurse Practitioner Family; Visit Provider Nurse Practitioner Family
DX: E11.9 Type 2 diabetes mellitus without complications (principal); Z79.84 Long term (current) use of oral hypoglycemic drugs
CPT/HCPCS: 80053; 83036; 83735

== ENCOUNTER 2024-01-03 18:00 | Outpatient (CLI) | payer BC, SELFPAY ==
[2024-01-03 16:39] LABS: Hemoglobin A1C 6.5 % (4.0-6.0)
[2024-01-03 16:41] LABS: Anion Gap 16.9 mEq/L (5-15); Blood Urea Nitrogen 24 mg/dl (7-17); Calcium 9.2 mg/dl (8.4-10.2); Carbon Dioxide 25 mmol/L (22.0-30.0); Chloride 101 mmol/L (98-107); Estimated Glomerular Filt Rate 46 ml/min (>60); GFR (African American) 55 ML/MIN (>60); Glucose 152 mg/dl (74-100); Potassium 3.9 mmoL/L (3.5-5.1); Sodium 139 mmol/L (136-145)
== END 2024-01-03 23:59 | disposition home or self-care (01) ==
LOC: LAB.DROPOF 01-04 07:17
PROVIDERS: PCP Nurse Practitioner Family; Visit Provider Nurse Practitioner Family
DX: E11.9 Type 2 diabetes mellitus without complications (principal); Z79.84 Long term (current) use of oral hypoglycemic drugs; Z79.85 Long-term (current) use of injectable non-insulin antidiabetic drugs
CPT/HCPCS: 80048; 83036

== ENCOUNTER 2024-01-18 09:31 | Outpatient (CLI) | payer BC, SELFPAY ==
[2024-01-18 09:46] LABS: Anion Gap 16.9 mEq/L (5-15); Blood Urea Nitrogen 17 mg/dl (7-17); Calcium 9.5 mg/dl (8.4-10.2); Carbon Dioxide 26 mmol/L (22.0-30.0); Chloride 101 mmol/L (98-107); Estimated Glomerular Filt Rate 51 ml/min (>60); GFR (African American) 61 ML/MIN (>60); Glucose 134 mg/dl (74-100); Potassium 4.9 mmoL/L (3.5-5.1); Sodium 139 mmol/L (136-145)
== END 2024-01-18 23:59 | disposition home or self-care (01) ==
LOC: LAB.DROPOF 09:32
PROVIDERS: PCP Family Medicine; Visit Provider Family Medicine
DX: I10 Essential (primary) hypertension (principal)
CPT/HCPCS: 80048

== ENCOUNTER 2024-02-21 16:29 | Outpatient (CLI) | payer BC, SELFPAY ==
[2024-02-21 20:49] LABS: Albumin Level 4.2 g/dl (3.5-5.0); Chloride 105 mmol/L (98-107); Potassium 5.1 mmoL/L (3.5-5.1); Sodium 139 mmol/L (136-145)
[2024-02-21 20:51] LABS: Blood Urea Nitrogen 23 mg/dl (7-17); Estimated Glomerular Filt Rate 42 ml/min (>60); GFR (African American) 50 ML/MIN (>60)
[2024-02-21 20:52] LABS: Anion Gap 17.1 mEq/L (5-15); Calcium 9.7 mg/dl (8.4-10.2); Carbon Dioxide 22 mmol/L (22.0-30.0); Glucose 122 mg/dl (74-100); Magnesium 2.3 mg/dl (1.6-2.3)
== END 2024-02-21 23:59 | disposition home or self-care (01) ==
LOC: LAB.DROPOF 16:29
PROVIDERS: PCP Nurse Practitioner Family; Visit Provider Nurse Practitioner Family
DX: N18.9 Chronic kidney disease, unspecified (principal)
CPT/HCPCS: 80069; 83735

== ENCOUNTER 2024-03-25 11:30 | Outpatient (CLI) | payer BC, SELFPAY ==
[2024-03-25 17:01] LABS: Basophils # 0.1 K/mm3 (0-0.2); Basophils % 1.2 % (0.1-2.0); Eosinophils # 0.3 K/mm3 (0.0-0.4); Eosinophils % 4.4 % (0.1-12.0); Hematocrit 42.4 % (37.0-47.0); Hemoglobin 13.2 g/dL (12.2-16.2); Lymphocytes # 2.1 K/mm3 (0.7-4.5); Lymphocytes % 28.2 % (10-50); Mean Corpuscular HGB Conc 31.2 g/dL (31.8-35.4); Mean Corpuscular Hemoglobin 27.8 pg (27.0-31.2); Mean Corpuscular Volume 89.3 fl (81-99); Mean Platelet Volume 9.1 fl (7.4-10.4); Monocytes # 0.4 K/mm3 (0.1-1.0); Monocytes % 5.7 % (1.7-9.3); Neutrophils # 4.6 K/mm3 (1.8-7.8); Neutrophils % 60.5 % (37.0-80.0); Platelet Count 389 K/mm3 (142-424); Red Blood Count 4.75 M/mm3 (4.20-5.40); Red Cell Distribution Width 14.7 % (11.5-17.5); White Blood Count 7.6 K/mm3 (4.8-10.8)
[2024-03-25 21:56] LABS: Alanine Aminotransferase 25 U/L (12-78); Albumin Level 3.7 g/dl (3.5-5.0); Alkaline Phosphatase 112 U/L (38-126); Anion Gap 9.9 mEq/L (5-15); Aspartate Amino Transferase 32 U/L (14-36); Bilirubin,Total 0.5 mg/dl (0.2-1.3); Blood Urea Nitrogen 17 mg/dl (7-17); Calcium 9.4 mg/dl (8.4-10.2); Carbon Dioxide 25 mmol/L (22.0-30.0); Chloride 107 mmol/L (98-107); Chol/HDL Ratio 3.5 (1-3.5); Cholesterol 253 mg/dl (140-200); Estimated Glomerular Filt Rate 56 ml/min (>60); GFR (African American) 68 ML/MIN (>60); Globulin 3.6 g/dL (1.3-3.2); Glucose 138 mg/dl (74-100); HDL Cholesterol 72 mg/dl (40-60); Potassium 4.9 mmoL/L (3.5-5.1); Sodium 137 mmol/L (136-145); Total Protein,Serum 7.3 g/dl (6.3-8.2); Triglycerides 146 mg/dl (30-150); VLDL Cholesterol 29 mg/dL (0-40)
[2024-03-25 22:07] LABS: Direct LDL Cholesterol 150.56 mg/dL (100-129)
== END 2024-03-25 23:59 | disposition home or self-care (01) ==
LOC: LAB.DROPOF 03-26 09:42
PROVIDERS: PCP Nurse Practitioner Family; Visit Provider Nurse Practitioner Family
DX: N18.9 Chronic kidney disease, unspecified (principal); E78.2 Mixed hyperlipidemia
CPT/HCPCS: 80053; 80061; 85025

== ENCOUNTER 2024-06-25 11:08 | Outpatient (CLI) | payer BC, SELFPAY ==
[2024-06-25 16:13] LABS: Creatinine,Urine Random 140 mg/dL (Not Estab.)
[2024-06-25 16:14] LABS: Albumin Level 3.9 g/dl (3.5-5.0)
[2024-06-25 16:15] LABS: Chloride 107 mmol/L (98-107); Potassium 4.3 mmoL/L (3.5-5.1); Sodium 138 mmol/L (136-145)
[2024-06-25 16:17] LABS: Alanine Aminotransferase 20 U/L (12-78); Anion Gap 10.3 mEq/L (5-15); Aspartate Amino Transferase 27 U/L (14-36); Blood Urea Nitrogen 17 mg/dl (7-17); Carbon Dioxide 25 mmol/L (22.0-30.0); Estimated Glomerular Filt Rate 50 ml/min (>60); GFR (African American) 61 ML/MIN (>60); Microalbumin/Creatinine Ratio 15.8
[2024-06-25 16:18] LABS: Albumin/Globulin Ratio 1.3 (1.1-1.8); Alkaline Phosphatase 133 U/L (38-126); Bilirubin,Total 0.6 mg/dl (0.2-1.3); Chol/HDL Ratio 2.2 (1-3.5); Cholesterol 163 mg/dl (140-200); Globulin 2.9 g/dL (1.3-3.2); Glucose 146 mg/dl (74-100); HDL Cholesterol 74 mg/dl (40-60); Total Protein,Serum 6.8 g/dl (6.3-8.2); Triglycerides 122 mg/dl (30-150); VLDL Cholesterol 24 mg/dL (0-40)
[2024-06-25 16:28] LABS: Basophils # 0.1 K/mm3 (0-0.2); Basophils % 0.6 % (0.1-2.0); Eosinophils # 0.4 K/mm3 (0.0-0.4); Hematocrit 42.2 % (37.0-47.0); Hemoglobin 13.7 g/dL (12.2-16.2); Lymphocytes % 25.8 % (10-50); Mean Corpuscular HGB Conc 32.5 g/dL (31.8-35.4); Mean Corpuscular Hemoglobin 27.5 pg (27.0-31.2); Mean Corpuscular Volume 84.4 fl (81-99); Monocytes # 0.5 K/mm3 (0.1-1.0); Neutrophils # 4.9 K/mm3 (1.8-7.8); Neutrophils % 62.6 % (37.0-80.0); Platelet Count 322 K/mm3 (142-424); Red Cell Distribution Width 14.9 % (11.5-17.5); White Blood Count 7.8 K/mm3 (4.8-10.8)
[2024-06-25 16:29] LABS: Direct LDL Cholesterol 63.91 mg/dL (100-129)
[2024-06-25 16:49] LABS: Thyroid Stimulating Hormone 3.22 uIU/mL (0.465-4.68)
[2024-06-25 16:57] LABS: Hemoglobin A1C 6.6 % (4.0-6.0)
[2024-06-25 16:59] LABS: HIV (1&2) Antibody Rapid NONREACTIVE (NONREACTIVE)
[2024-06-26 05:10] LABS: HCV Ab Non Reactive (Non Reactive)
== END 2024-06-25 23:59 | disposition home or self-care (01) ==
LOC: LAB.DROPOF 06-27 08:38
PROVIDERS: PCP Family Medicine; Visit Provider Family Medicine
DX: E11.9 Type 2 diabetes mellitus without complications (principal); Z11.59 Encounter for screening for other viral diseases; Z79.85 Long-term (current) use of injectable non-insulin antidiabetic drugs
CPT/HCPCS: 80050; 80053; 80061; 82043; 82570; 83036; 84443; 85025; 86803; 87389

== ENCOUNTER 2024-09-25 09:25 | Outpatient (CLI) | payer BC, SELFPAY ==
[2024-09-25 17:48] LABS: Basophils # 0.1 K/mm3 (0-0.2); Basophils % 0.6 % (0.1-2.0); Eosinophils # 0.5 K/mm3 (0.0-0.4); Eosinophils % 5.9 % (0.1-12.0); Hematocrit 43.9 % (37.0-47.0); Hemoglobin 13.1 g/dL (12.2-16.2); Lymphocytes # 2.4 K/mm3 (0.7-4.5); Lymphocytes % 27.3 % (10-50); Mean Corpuscular HGB Conc 29.8 g/dL (31.8-35.4); Mean Corpuscular Hemoglobin 25.6 pg (27.0-31.2); Mean Corpuscular Volume 85.9 fl (81-99); Mean Platelet Volume 11.6 fl (7.4-10.4); Monocytes # 0.8 K/mm3 (0.1-1.0); Monocytes % 8.5 % (1.7-9.3); Neutrophils # 5.1 K/mm3 (1.8-7.8); Neutrophils % 57.4 % (37.0-80.0); Platelet Count 366 K/mm3 (142-424); Red Blood Count 5.11 M/mm3 (4.20-5.40); White Blood Count 8.9 K/mm3 (4.8-10.8)
[2024-09-25 18:06] LABS: Creatinine,Urine Random 90 mg/dL (Not Estab.)
[2024-09-25 18:21] LABS: Microalbumin/Creatinine Ratio 16.7
[2024-09-25 18:57] LABS: Alanine Aminotransferase 26 U/L (12-78); Albumin Level 4.1 g/dl (3.5-5.0); Albumin/Globulin Ratio 1.4 (1.1-1.8); Alkaline Phosphatase 131 U/L (38-126); Aspartate Amino Transferase 32 U/L (14-36); Bilirubin,Total 0.4 mg/dl (0.2-1.3); Blood Urea Nitrogen 22 mg/dl (7-17); Calcium 9.1 mg/dl (8.4-10.2); Carbon Dioxide 26 mmol/L (22.0-30.0); Chloride 105 mmol/L (98-107); Chol/HDL Ratio 2.4 (1-3.5); Cholesterol 165 mg/dl (140-200); Estimated Glomerular Filt Rate 50 ml/min (>60); GFR (African American) 61 ML/MIN (>60); Globulin 2.9 g/dL (1.3-3.2); Glucose 133 mg/dl (74-100); HDL Cholesterol 68 mg/dl (40-60); Sodium 138 mmol/L (136-145); Triglycerides 145 mg/dl (30-150); VLDL Cholesterol 29 mg/dL (0-40)
[2024-09-25 19:15] LABS: 25-OH Vitamin D, Total 22.5 ng/mL (30-100)
[2024-09-25 19:26] LABS: Thyroid Stimulating Hormone 2.37 uIU/mL (0.465-4.68)
== END 2024-09-25 23:59 | disposition home or self-care (01) ==
LOC: LAB.DROPOF 09-26 13:29
PROVIDERS: PCP Nurse Practitioner Family; Visit Provider Nurse Practitioner Family
DX: N18.9 Chronic kidney disease, unspecified (principal); E55.9 Vitamin D deficiency, unspecified; E78.2 Mixed hyperlipidemia; E11.22 Type 2 diabetes mellitus with diabetic chronic kidney disease
CPT/HCPCS: 80053; 80061; 82043; 82306; 82570; 84443; 85025

== ENCOUNTER 2025-06-25 20:53 | Emergency (ER) | payer SELFPAY ==
--- OUTSIDE RECORDS SUMMARY | 2024-11-01 16:30 | XMS_ITS ---
Author Organization [facility] [place] Address [address] [place] [address] Care Team Providers Care Pastor Name Role Phone Chano Minor Primary Care Provider McShruthi Cerda Unavailable [phone] Migration, Provider Unavailable Unavailable Allergies Allergen (clinical drug ingredient) Drug/Non Drug Allergy documented on EMR Reaction Allergy Type Onset Date Status PCN (uncoded) Unknown Allergy Active REASON FOR VISIT [facility] Conversion Encounter Medications Medication SIG (Take, Route, Frequency, Duration) Notes Start Date End Date Status Venlafaxine HCl ER 150 MG 1 cap(s) orally once a day; Duration: 90 days Active Carvedilol 12.5 MG 1 tab(s) orally 2 times a day; Duration: 90 days Active Lisinopril 20 MG 1 tab(s) orally twice daily; Duration: 30 day(s) Active amLODIPine Besylate 10 MG 1 tab(s) orally once a day; Duration: 30 day(s) Active Omeprazole 20 MG 1 cap(s) orally once a day; Duration: 90 days Active Meloxicam 15 MG 1 tab(s) orally once a day; Duration: 30 day(s) Active DULoxetine HCl 60 MG 1 cap(s) orally onc e a day; Duration: 30 day(s) Active Montelukast Sodium 10 MG 1 tab(s) orally every night; Duration: 30 day(s) Active Jardiance 25 MG 1 tab(s) orally once a day (in the morning); Duration: 30 day(s) 05/25/2021 Active Lasix 40 MG 1 tab(s) orally once a day; Duration: 90 days Active Aspirin 81 MG 1 tab(s) orally once a day; Duration: 30 day(s) Active ACCU CHECK GLUCOMETER ONCE DAILY DX: E11.9; Duration: 99 DAYS *Please review for potential replacement for e-prescription and drug interaction check* Active ACCU CHECK SOFT CLICK LANCETS DIRECTED QD- DX: E11.9 *Please review for potential replacement for e-prescription and drug interaction check* Active PROAIR HFA CFC FREE 90 MCG/INH 2 PUFF(S) INHALED 4 TIMES A DAY PRN FOR ASTHMA; Duration: 30 DAYS *Please review for potential replacement for e-prescription and drug interaction check* 10/25/2015 Active Nitrostat 0.4 MG 1 tab(s) sublingually every 5 minutes as need for Chest Pain, Max 3 tabs 10/25/2015 Active Multivitamin MULTIPLE VITAMINS 1 CAP(S) ORALLY ONCE A DAY; Duration: 30 DAY(S) *Please review and pick correct strength-formulati on from [employer] options. If intended option is not shown, discontinue and re-order from Quick Search* Active metFORMIN HCl 1000 MG 1 tab(s) orally twice dialy; Duration: 90 Active Atorvastatin Calcium 20 MG 1 tab(s) orally once a day; Duration: 30 days Active ACCU CHECK TEST STRIPS DIRECTED QD- DX: E11.9 *Please review for potential replacement for e-prescription and drug interaction check* Active Encounters Encounter Location Date Provider Diagnosis [facility] [place] [address] [facility] [address] [place] [address] 11/01/2024 Provider Migration Primary osteoarthritis of both knees M17.0 and Type 2 diabetes mellitus without complication, without long-term current use of insulin E11.9 Assessments Encounter Date Diagnosis (ICD Code) Assessment Notes Treatment Notes Treatment Clinical Notes Section Notes 11/01/2024 Primary osteoarthritis of both knees (ICD-10 - M17.0) 11/01/2024 Type 2 diabetes mellitus without complication, without long-term current use of insulin (ICD-10 - E11.9) Plan Of Treatment Medication Medication Name Sig Start Date Stop Date Notes Venlafaxine HCl ER 150 MG 1 cap(s) orally once a day; Duration: 90 days Carvedilol 12.5 MG 1 tab(s) orally 2 times a day; Duration: 90 days Lisinopril 20 MG 1 tab(s) orally twice daily; Duration: 30 day(s) amLODIPine Besylate 10 MG 1 tab(s) orally once a day; Duration: 30 day(s) Omeprazole 20 MG 1 cap(s) orally once a day; Duration: 90 days Meloxicam 15 MG 1 tab(s) orally once a day; Duration: 30 day(s) DULoxetine HCl 60 MG 1 cap(s) orally once a day; Duration: 30 day(s) Montelukast Sodium 10 MG 1 tab(s) orally every night; Duration: 30 day(s) Jardiance 25 MG 1 tab(s) orally once a day (in the morning); Duration: 30 day(s) 05/25/2021 Lasix 40 MG 1 tab(s) orally once a day; Duration: 90 days metFORMIN HCl 1000 MG 1 tab(s) orally twice dialy; Duration: 90 Atorvastatin Calcium 20 MG 1 tab(s) orally once a day; Duration: 30 days ACCU CHECK TEST STRIPS DIRECTED QD- D X: E11.9 *Please review for potential replacement for e-prescription and drug interaction check* Progress Notes * Aniya BUCIOOB:[birth year] (60 yo F)Acc No.[id number]:11/01/2024 Patient: Alvina DUDLEY Provider: Nilam Zhang :1965 A ge:59 Y S ex:Female Date:11/01/2024 Address:[address] [place], [place] [id number] Pcp:Chano Minor Subjective: * Chief Complaints: * 1 . [facility] Conversion Encounter. * Medical History: * Medications: T aking Multivitamin MULTIPLE VITAMINS CAPSULE 1 CAP(S) ORALLY ONCE A DAY , Notes to Pharmacist: *Please review and pick [facility]. If intended option is not shown, discontinue and re-order from Quick Search*, Taking Aspirin 81 MG Tablet Delayed Release 1 tab(s) orally once a day , Taking Nitrostat 0.4 MG Tablet Sublingual 1 tab(s) sublingually every 5 minutes as need for Chest Pain, Max 3 tabs , Taking PROAIR HFA CFC FREE 90 MCG/INH AEROSOL 2 PUFF(S) INHALED 4 TIMES A DAY PRN FOR ASTHMA , Notes to Pharmacist: *Please review for potential replacement for e-prescription and drug interaction check*, Taking ACCU CHECK SOFT CLICK LANCETS DIRECTED QD- DX: E11.9 , Notes to Pharmacist: *Please review for potential replacement for e-prescription and drug interaction check*, Taking ACCU CHECK GLUCOMETER ONCE DAILY DX: E11.9 , Notes to Pharmacist: *Please review for potential replacement for e-prescription and drug interaction check* * Allergies: P CN. Objective: * Vitals: Assessment: * Assessment: 1. P rimary osteoarthritis of both knees - M17.0 2 . T ype 2 diabetes mellitus without complication, without long-term current use of insulin - E11.9 Plan: * Treatment: 2. T ype 2 diabetes mellitus without complication, without long-term current use of insulin Refill ACCU CHECK TEST STRIPS, DIRECTED, QD- DX: E11.9, 1 BOX, Refills 5, Notes to Pharmacist: *Please review for potential replacement for e-prescription and drug interaction check*. 3. O thers Refill Jardiance Tablet, 25 MG, 1 tab(s), orally, once a day (in the morning), 30 day(s), 30 tabs, Refills 5; R efill Montelukast Sodium Tablet, 10 MG, 1 tab(s), orally, every night, 30 day(s), 30 tabs, Refills 5; R efill DULoxetine HCl Capsule Delayed Release Particles, 60 MG, 1 cap(s), orally, once a day, 30 day(s), 30 tabs, Refills 5; S tart metFORMIN HCl Tablet, 1000 MG, 1 tab(s), orally, twice dialy, 90, 180, Refills 2; S tart Lasix Tablet, 40 MG, 1 tab(s), orally, once a day, 90 days, 90 Tablet, Refills 1; S tart Carvedilol Tablet, 12.5 MG, 1 tab(s), orally, 2 times a day, 90 days, 180 Tablet, Refills 1; S tart Venlafaxine HCl ER Capsule Extended Release 24 Hour, 150 MG, 1 cap(s), orally, once a day, 90 days, 90 Capsule, Refills 1; S tart Omeprazole Capsule Delayed Release, 20 MG, 1 cap(s), orally, once a day, 90 days, 90 Capsule, Refills 1; S tart amLODIPine Besylate Tablet, 10 MG, 1 tab(s), orally, once a day, 30 day(s), 30 tabs, Refills 5; S tart Lisinopril Tablet, 20 MG, 1 tab(s), orally, twice daily, 30 day(s), 60 tabs, Refills 5; S tart Atorvastatin Calcium Tablet, 20 MG, 1 tab(s), orally, once a day, 30 days, 30 Tablet, Refills 5. * * Electronic signature of Prov ider Migration on 06/25/2025 at 09:11 PM EST Sign off status: Pending * Provider: Nilam guzmán Migration Date: 0 11/01/2024 Generated for Christopher rice/Sally/Dana on: 1 08/25/2024 09:11 PM EST
--- NOTE | 2025-06-25 21:03 | ECG_ITS ---
APPROVED REPORT Exam: Resting ECG HR:64 bpm ECG Measurements Heart Rate 64 AXES [place] 161 P 68 QRSd 94 QRS 46 QT 420 T 63 QTc 430 Conclusion Normal sinus rhythm without acute ST or T wave changes concerning for ischemia Electronically signed by : Frieda Davison, 06/26/2025 00:43:47
[2025-06-25 21:04] VITALS: BP 192/102; PULSE 76; RESP 17; TEMP 36.9; O2SAT 99; BMI 54.6
[2025-06-25 21:09] VITALS: O2SAT 99
--- OUTSIDE RECORDS SUMMARY | 2025-06-25 21:11 | XMS_ITS | Patient Health Record ---
Author Organization [facility] Address [address] [facility] [address] [place] [address] Care Team Providers Care Research Professor Name Role Phone Chano Minor Primary Care Provider Shruthi Thomas Unavailable [phone] Migration, Provider Unavailable Unavailable Allergies Allergen (clinical drug ingredient) Drug/Non Drug Allergy documented on EMR Reaction Allergy Type Onset Date Status PCN (uncoded) Unknown Allergy Active Medications Medication SIG (Take, Route, Frequency, Duration) Notes Start Date End Date Status Atorvastatin Calcium 20 MG 1 tab(s) orally once a day; Duration: 30 days Active ACCU CHECK TEST STRIPS DIRECTED QD- DX: E11.9 *Please review for potential replacement for e-prescription and drug interaction check* Active Lisinopril 20 MG 1 tab(s) orally twice daily; Duration: 30 day(s) Active amLODIPine Besylate 10 MG 1 tab(s) orally once a day; Duration: 30 day(s) Active Omeprazole 20 MG 1 cap(s) orally once a day; Duration: 90 days Active ACCU CHECK GLUCOMETER ONCE DAILY DX: [...] Chest Pain, Max 3 tabs 10/25/2015 Active Aspirin 81 MG 1 tab(s) orally once a day; Duration: 30 day(s) Active Meloxicam 15 MG 1 tab(s) orally once a day; Duration: 30 day(s) Active Multivitamin MULTIPLE VITAMINS 1 CAP(S) ORALLY ONCE A DAY; Duration: 30 DAY(S) *Please review and pick correct strength-formulati on from [employer] options. If intended option is not shown, discontinue and re-order from Quick Search* Active DULoxetine HCl 60 MG 1 cap(s) orally onc e a day; Duration: 30 day(s) Active Montelukast Sodium 10 MG 1 tab(s) orally every night; Duration: 30 day(s) Active Jardiance 25 MG 1 tab(s) orally once a day (in the morning); Duration: 30 day(s) 05/25/2021 Active Venlafaxine HCl ER 150 MG 1 cap(s) orally once a day; Duration: 90 days Active Carvedilol 12.5 MG 1 tab(s) orally 2 times a day; Duration: 90 days Active metFORMIN HCl 1000 MG 1 tab(s) orally twice dialy; Duration: 90 Active Lasix 40 MG 1 tab(s) orally once a day; Duration: 90 days Active Immunizations Vaccine Route Administration Date Status Comme nts Flublok IM Intramuscular 05/23/2021 Administered FLUZONE 6MO - OLDER IM Intramuscular 06/03/2019 Administer ed Problems Problem Type SNOMED Code ICD Code Onset Dates Problem Status W/U Status Risk Notes Problem Mixed hyperlipidemia (983684577) Mixed hyperlipidemia (E78.2) Active confirmed Problem Essential hypertension (28447040) Essential (primary) hypertension (I10) Active confirmed Problem Diaphragmatic hernia (96763360) Diaphragmatic hernia without obstruction or gangrene (K44.9) Active confirmed Problem Body mass index 40+ - severely obese (614250544) BMI 45.0-49.9, adult (Z68.42) Active confirmed Problem Vitamin D deficiency (48452717) Vitamin D deficiency (E55.9) Active confirmed Problem Onychomycosis (589789680) Onychomycosis (B35.1) Active confirmed Problem Hyperglycemia (12840426) Hyperglycemia (R73.9) Active confirmed Problem Gastroesophageal reflux disease (514526185) GERD without esophagitis (K21.9) Active confirmed Problem Sleep disturbance (46414167) Sleep disturbance (G47.9) Active confirmed Problem Body mass index 40+ - severely obese (749207296) BMI 50.0-59.9, adult (Z68.43) Active confirmed Problem Osteoarthritis of knee (360260426) Primary osteoarthritis of both knees (M17.0) Active confirmed Problem Mild intermittent asthma (250575455) Mild intermittent asthma without complication (J45.20) Active confirmed Problem Morbid obesity (875414895) Morbid obesity due to excess calories (E66.01) Active confirmed Problem Microalbuminuria (611066302) Microalbuminuria (R80.9) Active confirmed Problem Body mass index 40+ - severely obese (217155636) Body mass index (BMI) of 40.0-44.9 in adult (Z68.41) Active confirmed Problem Sciatica (79061725) Sciatica of left side (M54.32) Active confirmed Problem Sciatica (36776851) Acute left-s ided low back pain with left-sided sciatica (M54.42) Active confirmed Problem Type II diabetes mellitus without complication (371617823) Type 2 diabetes mellitus without complication, without long-term current use of insulin (E11.9) Active confirmed Problem Mild major depression, single episode (06622419) Mild single current episode of major depressive disorder (F32.0) Active confirmed Problem Hypertensive urgency (377224149) Hypertensive urgency (I16.0) Active confirmed Problem Hypertensive emergency (523575055465300) Hypertensive emergency (I16.1) Active confirmed Problem Anxiety depression (950221557) Anxiety with depression (F41.8) Active confirmed Problem Hyperlipidemia (98453354) Other hyperlipidemia (E78.49) Active confirmed Encounters Encounter Location Date Provider Diagnosis [facility] [place] [address] [facility] [address] [place] [address] 11/01/2024 Provider Migration Primary osteoarthritis of both [...] insulin (ICD-10 - E11.9) Plan Of Treatment Pending Test Test Name Order Date N-CBC 05/03/2007 X-Lipid Profile 05/03/2007 Ultrasound : Carotids 10/25/2015 Ultrasound : Pelvis, Transvaginal 2010 Mammogram : Right Breast 11/27/2014 N-TSH (Thyroid Stimulating Hormone) 11/2006 N-TSH (Thyroid Stimulating Hormone) 09/2011 N-TSH (Thyroid Stimulating Hormone) 01/2011 N-CMP 05/03/2007 N-CMP 05/05/2011 N-Lipid Panel 09/01/2011 Echocardiogram 09/01/2011 Physical Therapy 05/23/2016 Physical Therapy 03/16/2020 Physical Therapy 03/16/2020 Physical Therapy 01/09/2020 N-cmp 09/01/2011 Mammogram : Bilateral 02/06/2017 Mammogram : Bilateral 05/30/2021 N-H & H 05/05/2011 N-CBC with diff 09/01/2011 Dietary Consult 02/07/2017 C-CBC 10/25/2015 C-CMP 10/25/2015 C-CMP 09/15/2020 C-LIPID PANEL 09/15/2020 C-LIPID PANEL 10/25/2015 C-TSH 10/25/2015 C-VITAMIN B12 10/25/2015 C-CARDIAC ENZYMES 10/25/2015 C-HGBA1C 10/25/2015 C-VITAMIN D, 25-HYDROXY 10/25/2015 M-Hemoglobin A1C 08/15/2021 M-Vitamin D 25 Hydroxy 05/23/2021 Insurance Providers Payer Name Payer Address Payer Phone Subscriber Number Group Number Insured Name Patient Relationship to Insured Coverage Start Date Coverage End Date [facility] [address] [place] [address] [id number] Alvina Bucio Self - patient is the insured Medications Administered Medication Instructions Date of Administration Dosage Notes Triamcinolone Acetonide 40mg Injection 01/08/2020 1 mL Kenalog 05/31/2016 1 mL Medical (General) History Medical History History ICD Code Gout HTN Depression Back Pain GERD w/ hiatal hernia OA of knees Morbid Obesity Type 2 diabetes Surgical History Surgery Date(Month/Year) [facility] 2010 Tubal ligation 1985 Negative breast bx 12/11 Neg Cardiac Cath 2015 Hospitalization History Reason Date(Month/Year) [facility] - anemia r/t menorrhagia requiring t ransfusion 05/09 Hysterectomy 06/09 CP/back pain/GERD - [facility] 04/2016 HTN 12/2020
--- NOTE | 2025-06-25 21:32 | XR_ITS ---
PROCEDURE INFORMATION: Exam: XR Chest Exam date and time: 06/25/2025 9:35 PM Age: 60 years old Clinical indication: Dyspnea; Additional info: SOA TECHNIQUE: Imaging protocol: Radiologic exam of the chest. Views: 2 views. COMPARISON: CR XR CHEST PORTABLE 05/10/2023 3:48 PM FINDINGS: Limitations: Radiographic technique - mild. Lungs: No definite consolidation. Pleural spaces: No significant pleural effusion. No pneumothorax. Heart/Mediastinum: No cardiomegaly. Bones/joints: No displaced fracture. Soft tissues: Unremarkable. IMPRESSION: No definite acute cardiopulmonary disease.
[2025-06-25] MEDS: AMLODIPINE 10MG TABLET 10 MG PO (21:40)
--- NOTE | 2025-06-25 21:43 | ED_ITS ---
<Statement entered by Frieda Davison DO - 06/26/25 00:56> I was consulted by the KATHRYN, and we discussed the complexity of problems being addressed. I approve the treatment and management plan for this patient's care in the emergency department, thus performing a substantial portion of the medical decision making. Frieda Davison DO Discharge Plan Disposition Patient Disposition: Home, Self-Care Condition: Good Prescriptions Prescriptions: No Action albuterol sulfate 90 mcg/actuation HFA aerosol inhaler 1 inh inhalation QID Qty: 6.7 2RF atorvastatin 40 mg tablet 40 mg PO HS Qty: 90 2RF cholecalciferol (vitamin D3) 125 mcg (5,000 unit) tablet 125 mcg PO DAILY 90 Days Qty: 90 0RF magnesium 250 mg tablet 250 mg PO DAILY Qty: 30 1RF pantoprazole [Protonix] 40 mg tablet,delayed release (DR/EC) 40 mg PO DAILY Qty: 90 2RF (DME) Accu-Chek Guide test strips Strip See Rx Instructions .ROUTE .COMPLEX Qty: 50 4RF Dose Instruction: CHECK BLOOD SUGAR ONCE DAILY Rx Instructions: CHECK BLOOD SUGAR ONCE DAILY insulin glargine-aglr 100 unit/mL (3 mL) insulin pen 48 unit SQ HS 30 Days Qty: 14.4 2RF amlodipine 10 mg tablet 10 mg PO DAILY 90 Days Qty: 90 0RF hydroxyzine pamoate 25 mg capsule 25 mg PO TID PRN (Reason: anxiety) 90 Days Qty: 90 0RF carvedilol 25 mg tablet 25 mg PO BID 90 Days Qty: 180 0RF lisinopril 20 mg tablet 20 mg PO BID 90 Days Qty: 180 0RF venlafaxine 150 mg capsule,extended release 24hr See Rx Instructions .ROUTE .COMPLEX Qty: 90 0RF Dose Instruction: TAKE 1 CAPSULE BY MOUTH ONCE DAILY Rx Instructions: TAKE 1 CAPSULE BY MOUTH ONCE DAILY duloxetine 60 mg capsule,delayed release(DR/EC) See Rx Instructions .ROUTE .COMPLEX Qty: 90 0RF Dose Instruction: TAKE 1 CAPSULE BY MOUTH DAILY FOR 90 DAYS Rx Instructions: TAKE 1 CAPSULE BY MOUTH DAILY FOR 90 DAYS mirtazapine 7.5 mg tablet 7.5 mg PO HS 90 Days Qty: 90 0RF aspirin 81 MG tablet,chewable 81 mg PO DAILY Referrals Follow up/Referrals: Tiffany Malhotra APRN [Primary Care Provider, Family Practice] - See instructions Activity Restrictions/Add. Instructions Additional Instructions/Restrictions: Follow-up with your primary care provider. Return to the ER for any acute or worsening shortness of breath. Use [facility] to help you get your prescriptions and take your blood pressure medications at home. Return for any chest pain, headache, vision changes or any other worrisome symptoms. Clinical Impressions Clinical Impression: Shortness of breath Print Language Print Language: Israeli Discharge ED Provider: Frieda Davison General Adult HPI <MAMADOU Winters - Last Filed: 06/25/25 22:40> General Chief complaint: Shortness of Breath/Dyspnea Stated complaint: SOA, shaky Time Seen by Provider: 06/25/25 21:15 Mode of Arrival: Ambulatory Source of Information: Patient Description of Symptoms (Recalled from ER Triage Doc. by RN): patient presents for SOA, n/v and dizziness for 2 weeks. she stated she ran out of her daily meds 2 weeks ago and these symptoms have progressed every since. she has a history is diabetes, hypercholesterolemia, hypertension, depression, GERD, and kidney problems . her cheif complain is the SOA. History of Present Illness HPI narrative: Patient presents complaining of feeling shaky, having an episode of yelling and screaming after being out of her medication for 2 weeks. She reports that she has been out of her hydroxyzine and possibly duloxetine. She reports she has been taking her daughter's venlafaxine which she has also prescribed. Patient has been under a significant amount of stress with multiple family members who are ill, she also was not able to see her great granddaughter today who had her first birthday. She reports she has been out of amlodipine as well. She does report some shortness of breath. She reports she has had similar episodes to this when being out of medication in the past. Denies any suicidal ideation. complaint: anxious, dyspnea Severity: moderate Relieving factors: none Exacerbating factors: none Associated symptoms: shortness of breath Treatments prior to arrival: none Related Data Home Medications ?Medication ?Instructions ?Recorded ?Confirmed aspirin 81 mg chewable tablet 81 mg PO DAILY heart hea lt 12/30/20 03/05/25 Previous Rx's ?Medication ?Instructions ?Recorded blood sugar diagnostic (Accu-Chek #50 ea 11/14/23 Guide test strips) albuterol sulfate 90 mcg/actuation 1 inh inhalation QI D #6.7 grams 03/05/25 aerosol inhaler atorvastatin 40 mg tablet 40 mg PO HS #90 tabs 5 cholecalciferol (vitamin D3) 125 125 mcg PO DAILY Supp lement 90 03/05/25 mcg (5,000 unit) tablet days #90 tabs magnesium 250 mg tablet 250 mg PO DAILY #30 tabs 02/20 pantoprazole 40 mg tablet,delayed 40 mg PO DAILY #90 t abs 03/05/25 release (Protonix) insulin glargine-aglr 100 unit/mL 48 unit (0.48 mL) SQ HS 30 days 05/11/25 (3 mL) subcutaneous pen #14.4 mL amlodipine 10 mg tablet 10 mg PO DAILY . 90 days #90 tabs 06/11/25 carvedilol 25 mg tablet 25 mg PO BID Hypertension 90 days 06/11/25 #180 tabs duloxetine 60 mg capsule,delayed See Rx Instructions . Route 06/11/25 release .COMPLEX #90 caps hydroxyzine pamoate 25 mg capsule 25 mg PO TID PRN anx iety 90 days 06/11/25 #90 caps lisinopril 20 mg tablet 20 mg PO BID Hypertension 90 days 06/11/25 #180 tabs mirtazapine 7.5 mg tablet 7.5 mg PO HS sleep 90 days # 90 tabs 06/11/25 venlafaxine 150 mg See Rx Instructions .Route 1 08/11/24 capsule,extended release 24 hr .COMPLEX #90 caps Allergies Allergy/AdvReac Type Severity Reaction Status Date / Time Penicillins (PENICILLINS) Allergy Unknown Verified 03/05/25 09:08 <Frieda Davison, DO - Last Filed: 06/26/25 00:56> History of Present Illness HPI narrative: Patient presents complaining of feeling shaky, having an episode of yelling and screaming after being out of her medication for 2 weeks. She reports that she has been out of her hydroxyzine and possibly duloxetine. She reports she has been taking her daughter's venlafaxine which she has also prescribed. Patient has been under a significant amount of stress with multiple family members who are ill, she also was not able to see her great granddaughter today who had her first birthday. She reports she has been out of amlodipine as well. She does report some shortness of breath. She reports she has had similar episodes to this when being out of medication in the past. Denies any suicidal ideation. Patient denies any chest pain. Patient denies any upper respiratory symptoms including cough congestion. Patient denies any abdominal pain nausea vomiting or diarrhea. Patient states that she currently does not have insurance but that it starts to be an effect on the fifth. Patient states that she does have some of her blood pressure medications at home but did not take them this evening. Patient denies any history of blood clots. Patient denies any recent surgeries. Patient is not on any hormone medications. [facility] <MAMADOU Winters - Last Filed: 06/25/25 22:40> [facility] Disclaimer: The information contained in this section may have been updated after the patient was seen, as this information can be updated by other users. Medical History Diastolic dysfunction Palpitations Orthopnea Dyspnea Abnormal result of cardiovascular function study Typical angina Hyperlipidemia Anxiety Depression Diabetes mellitus Surgical History History of hysterectomy Family History Mother Coronary artery disease Diabetes Hypertension Father Coronary artery disease Hypertension Diabetes Kidney disease Social History Smoking Status: Unknown if ever smoked smoking status stop date: 07/30/1997 alcohol intake: never substance use type: denies use current occupational status: unemployed Travel in the last 8 weeks?: Inside the [place] household members: spouse and children housing: house lives independently: Yes marital status: caffeine: Yes special chandrika needs: No agree to transfusion: No do you feel safe at home: Yes victim of physical abuse: No victim of emotional abuse: No victim of sexual abuse: No would you like helpful sources: No Have you lived/traveled outside [place] in past 30 days?: No Contact w/someone who lives/traveled outside [place] past 30 days?: No Exposure to someone with infectious disease in past 14 days?: No Do you have a fever (greater than 100.4 F or 38 C)?: No Have you tested positive for COVID-19?: No Exposed to someone with COVID-19 in past 14 days?: No Do you have a sore throat?: No Do you have a cough?: No Do you have any weakness?: No Do you have any diarrhea?: No Are you experiencing any unusual bleeding?: No Do you have any muscle aches/pain?: No Do you have any abdominal pain?: No Are you experiencing loss of taste or smell?: No Other Medical History Have you received the Flu Vaccine for this season: No Have you received the Pneumonia Vaccine: No <MAMADOU Winters - Last Filed: 06/25/25 22:40> ROS Obtained: Yes Systems reviewed as appropriate & no additional complaints except as documented <Frieda Davison DO - Last Filed: 06/26/25 00:56> ROS Obtained: Yes All systems reviewed & no additional complaints except as documented and Yes Systems reviewed as appropriate & no additional complaints except as documented Physical Exam <MAMADOU Winters - Last Filed: 06/25/25 22:40> General General appearance: alert and in no apparent distress Head Head exam: atraumatic and normocephalic Eye Eye exam: Present normal appearance and EOMI Chest Chest inspection: Present symmetric chest wall rise Respiratory Respiratory exam: Present normal lung sounds bilaterally; Absent wheezes or stridor Cardiovascular Cardiovascular exam: Present regular rate and normal rhythm; Absent systolic murmur Extremities Exam Extremities exam: Present full ROM Neurological Exam Neurological exam: Present alert, oriented X3 and CN II-XII intact; Absent motor sensory deficit Psychiatric Psychiatric exam: Present normal affect and normal mood Skin Skin exam: Present warm, dry and intact Medical Decision Making <MAMADOU Winters - Last Filed: 06/25/25 22:40> Medical Records Screening: Per USPSTF and CDC recommendations, given the prevalence of disease in our region, it is our hospital?s policy to screen for HIV and viral Hepatitis for all patients aged 18 and over and those with ongoing risk factors. Nelson Inquiry Pt receiving controlled substance: No Vital Signs: 06/25/25 21:04 06/25/25 21:09 06/26/25 00:56 Temperature 98.5 F 98.8 F Temperature Source Oral Oral Pulse Rate 74 Pulse Rate [Right Radial] 76 Respiratory Rate 17 18 Blood Pressure 174/78 H Blood Pressure [Right Arm] 192/102 H Blood Pressure Mean [Right Arm] 132 Blood Pressure Source [Right Arm] Automatic Cuff Blood Pressure Position [Right Arm] Sitting 02 Sat by Pulse Oximetry 99 99 Oxygen Delivery Method Room Air Room Air Room Air Lab Data Lab Results 06/25/25 21:05: WBC 11.6 H, RBC 5.06, Hgb 13.3, Hct 43.1, MCV 85.2, MCH 26.3 L, MCHC 30.9 L, RDW 15.6, Plt Count 392, MPV 11.9 H, Neut % (Auto) 70.5, Lymph % (Auto) 19.3, [place] % (Auto) 7.7, Eos % (Auto) 1.8, Baso % (Auto) 0.4, Neut # (Auto) 8.2 H, Lymph # (Auto) 2.2, [place] # (Auto) 0.9, Eos # (Auto) 0.2, Baso # (Auto) 0.1, D-Dimer 0.87 H, Sodium 138, Potassium 4.0, Chloride 102, Carbon Dioxide 28, Anion Gap 12.0, BUN 24 H, Creatinine 1.20 H, Estimated Creat Clear 40, Estimated GFR 46 L, Est GFR ( Amer) 55 L, Glucose 181 H, Calcium 9.8, Total Bilirubin 0.5, AST 35, ALT 30, Alkaline Phosphatase 110, Troponin I < 0.01, Total Protein 8.7 H, Albumin 4.6, Globulin 4.1 H, Albumin/Globulin Ratio 1.1 06/25/25 23:33: Troponin I < 0.01 06/25/25 21:05 06/25/25 21:05 Orders (Tests/Meds): ED MEDICATIONS Discontinued Medications Generic Name Dose Route Start Last Admin Trade Name Amado PRN Reason Stop Dose Admin Amlodipine Besylate 10 mg 06/25/25 21:25 06/25/25 21:40 Amlodipine 10mg Tablet PO 06/25/25 21:26 10 mg DAILY STA Administration Carvedilol 25 mg 06/25/25 22:38 06/25/25 22:45 Carvedilol 25mg Tablet PO 06/25/25 22:39 25 mg ONCE ONE Administration Hydroxyzine Pamoate 25 mg 06/25/25 21:25 06/25/25 21:41 Hydroxyzine Pamoate 25mg Capsule PO 06/25/25 21:26 25 mg ONCE STA Administration Lisinopril 20 mg 06/25/25 22:37 06/25/25 22:45 Lisinopril 20mg Tablet PO 06/25/25 22:38 20 mg DAILY STA Administration Lisinopril 20 mg 06/25/25 22:51 06/25/25 23:06 Lisinopril 20mg Tablet PO 06/25/25 22:52 20 mg ONCE STA Administration Sodium Chloride 10 ml 06/25/25 21:32 Sodium Chloride 0.9% 10ml Flush Syringe IV 07/25/25 21:31 NEEDED PRN Maintain IV Site ORDERS Category Date Time Status Chest XR 2 view (NOT portable) [XR chest 2V] Stat Exams 06/25/25 21:32 Completed CBC w/Auto Diff [Complete Blood Count Auto Diff] Stat Lab 06/25/25 21:05 Completed CMP [Comprehensive Metabolic Panel] Stat Lab 06/25/25 21:05 Completed D-Dimer Stat Lab 06/25/25 21:05 Completed Trop I [Troponin I] Stat Lab 06/25/25 21:05 Completed Troponin I Q3H Lab 06/26/25 00:00 Completed Medical Decision Narrative: In summary patient is a 60-year-old female who presents the emergency department for evaluation of dyspnea, anxiety. Patient is hypertensive upon arrival, afebrile. Unremarkable physical exam. Differential diagnosis includes anxiety, ACS, pulmonary embolism, pneumonia. Initial workup will be conducted with EKG, chest x-ray, hematologic labs, troponin, D-dimer. Initial inventions include home dose of amlodipine and hydroxyzine. Initial workup reviewed by in labs unremarkable. D-dimer negative per years criteria. Upon repeat evaluation patient is resting comfortably. Patient signed out to Dr. Davison pending repeat troponin. <Frieda Davison, DO - Last Filed: 06/26/25 00:56> Nelson Inquiry Pt receiving controlled substance: No Vital Signs: 06/25/25 21:04 06/25/25 21:09 06/26/25 00:56 Temperature 98.5 F 98.8 F Temperature Source Oral Oral Pulse Rate 74 Pulse Rate [Right Radial] 76 Respiratory Rate 17 18 Blood Pressure 174/78 H Blood Pressure [Right Arm] 192/102 H Blood Pressure Mean [Right Arm] 132 Blood Pressure Source [Right Arm] Automatic Cuff Blood Pressure Position [Right Arm] Sitting 02 Sat by Pulse Oximetry 99 99 Oxygen Delivery Method Room Air Room Air Room Air Lab Data Lab results reviewed: Yes I reviewed the patient's lab results. Lab Results 06/25/25 21:05: WBC 11.6 H, RBC 5.06, Hgb 13.3, Hct 43.1, MCV 85.2, MCH 26.3 L, MCHC 30.9 L, RDW 15.6, Plt Count 392, MPV 11.9 H, Neut % (Auto) 70.5, Lymph % (Auto) 19.3, [place] % (Auto) 7.7, Eos % (Auto) 1.8, Baso % (Auto) 0.4, Neut # (Auto) 8.2 H, Lymph # (Auto) 2.2, [place] # (Auto) 0.9, Eos # (Auto) 0.2, Baso # (Auto) 0.1, D-Dimer 0.87 H, Sodium 138, Potassium 4.0, Chloride 102, Carbon Dioxide 28, Anion Gap 12.0, BUN 24 H, Creatinine 1.20 H, Estimated Creat Clear 40, Estimated GFR 46 L, Est GFR ( Amer) 55 L, Glucose 181 H, Calcium 9.8, Total Bilirubin 0.5, AST 35, ALT 30, Alkaline Phosphatase 110, Troponin I < 0.01, Total Protein 8.7 H, Albumin 4.6, Globulin 4.1 H, Albumin/Globulin Ratio 1.1 06/25/25 23:33: Troponin I < 0.01 Orders (Tests/Meds): ED MEDICATIONS Discontinued Medications Generic Name Dose Route Start Last Admin Trade Name Viktorq PRN Reason Stop Dose Admin Amlodipine Besylate 10 mg 06/25/25 21:25 06/25/25 21:40 Amlodipine 10mg Tablet PO 06/25/25 21:26 10 mg DAILY STA Administration Carvedilol 25 mg 06/25/25 22:38 06/25/25 22:45 Carvedilol 25mg Tablet PO 06/25/25 22:39 25 mg ONCE ONE Administration Hydroxyzine Pamoate 25 mg 06/25/25 21:25 06/25/25 21:41 Hydroxyzine Pamoate 25mg Capsule PO 06/25/25 21:26 25 mg ONCE STA Administration Lisinopril 20 mg 06/25/25 22:37 06/25/25 22:45 Lisinopril 20mg Tablet PO 06/25/25 22:38 20 mg DAILY STA Administration Lisinopril 20 mg 06/25/25 22:51 06/25/25 23:06 Lisinopril 20mg Tablet PO 06/25/25 22:52 20 mg ONCE STA Administration Sodium Chloride 10 ml 06/25/25 21:32 Sodium Chloride 0.9% 10ml Flush Syringe IV 07/25/25 21:31 NEEDED PRN Maintain IV Site ORDERS Category Date Time Status Chest XR 2 view (NOT portable) [XR chest 2V] Stat Exams 06/25/25 21:32 Completed CBC w/Auto Diff [Complete Blood Count Auto Diff] Stat Lab 06/25/25 21:05 Completed CMP [Comprehensive Metabolic Panel] Stat Lab 06/25/25 21:05 Completed D-Dimer Stat Lab 06/25/25 21:05 Completed Trop I [Troponin I] Stat Lab 06/25/25 21:05 Completed Troponin I Q3H Lab 06/26/25 00:00 Completed Medical Decision Narrative: In summary patient is a 60-year-old female who presents the emergency department for evaluation of dyspnea, anxiety. Patient is hypertensive upon arrival, afebrile. Unremarkable physical exam. Differential diagnosis includes anxiety, ACS, pulmonary embolism, pneumonia. Initial workup will be conducted with EKG, chest x-ray, hematologic labs, troponin, D-dimer. Initial inventions include home dose of amlodipine and hydroxyzine. Initial workup reviewed by me labs unremarkable. D-dimer negative per years criteria. Upon repeat evaluation patient is resting comfortably. Patient signed out to Dr. Davison pending repeat troponin. Frieda Davison DO I assumed care of the patient at 2200. Patient's repeat troponin was unremarkable. At this time, I felt that patient was stable and appropriate for discharge home. Patient has her blood pressure medications at home. Patient was given all of her home medications. After patient's home blood pressure medications, patient's blood pressure did improve her blood pressure prior to discharge was 173/85. Patient did not have any chest pain, headache or other associated symptoms at this time. Was advised to follow-up with her primary care provider to get her prescriptions for her medications and patient was otherwise discharged home in stable condition. <Angel Arguelles MD - Last Filed: 06/26/25 01:18> Vital Signs: 06/25/25 21:04 06/25/25 21:09 06/26/25 00:56 Temperature 98.5 F 98.8 F Temperature Source Oral Oral Pulse Rate 74 Pulse Rate [Right Radial] 76 Respiratory Rate 17 18 Blood Pressure 174/78 H Blood Pressure [Right Arm] 192/102 H Blood Pressure Mean [Right Arm] 132 Blood Pressure Source [Right Arm] Automatic Cuff Blood Pressure Position [Right Arm] Sitting 02 Sat by Pulse Oximetry 99 99 Oxygen Delivery Method Room Air Room Air Room Air Lab Data Lab Results 06/25/25 21:05: WBC 11.6 H, RBC 5.06, Hgb 13.3, Hct 43.1, MCV 85.2, MCH 26.3 L, MCHC 30.9 L, RDW 15.6, Plt Count 392, MPV 11.9 H, Neut % (Auto) 70.5, Lymph % (Auto) 19.3, [place] % (Auto) 7.7, Eos % (Auto) 1.8, Baso % (Auto) 0.4, Neut # (Auto) 8.2 H, Lymph # (Auto) 2.2, [place] # (Auto) 0.9, Eos # (Auto) 0.2, Baso # (Auto) 0.1, D-Dimer 0.87 H, Sodium 138, Potassium 4.0, Chloride 102, Carbon Dioxide 28, Anion Gap 12.0, BUN 24 H, Creatinine 1.20 H, Estimated Creat Clear 40, Estimated GFR 46 L, Est GFR ( Amer) 55 L, Glucose 181 H, Calcium 9.8, Total Bilirubin 0.5, AST 35, ALT 30, Alkaline Phosphatase 110, Troponin I < 0.01, Total Protein 8.7 H, Albumin 4.6, Globulin 4.1 H, Albumin/Globulin Ratio 1.1 06/25/25 23:33: Troponin I < 0.01 Orders (Tests/Meds): ED MEDICATIONS Discontinued Medications Generic Name Dose Route Start Last Admin Trade Name Freq PRN Reason Stop Dose Admin Amlodipine Besylate 10 mg 06/25/25 21:25 06/25/25 21:40 Amlodipine 10mg Tablet PO 06/25/25 21:26 10 mg DAILY STA Administration Carvedilol 25 mg 06/25/25 22:38 06/25/25 22:45 Carvedilol 25mg Tablet PO 06/25/25 22:39 25 mg ONCE ONE Administration Hydroxyzine Pamoate 25 mg 06/25/25 21:25 06/25/25 21:41 Hydroxyzine Pamoate 25mg Capsule PO 06/25/25 21:26 25 mg ONCE STA Administration Lisinopril 20 mg 06/25/25 22:37 06/25/25 22:45 Lisinopril 20mg Tablet PO 06/25/25 22:38 20 mg DAILY STA Administration Lisinopril 20 mg 06/25/25 22:51 06/25/25 23:06 Lisinopril 20mg Tablet PO 06/25/25 22:52 20 mg ONCE STA Administration Sodium Chloride 10 ml 06/25/25 21:32 Sodium Chloride 0.9% 10ml Flush Syringe IV 07/25/25 21:31 NEEDED PRN Maintain IV Site ORDERS Category Date Time Status Chest XR 2 view (NOT portable) [XR chest 2V] Stat Exams 06/25/25 21:32 Completed CBC w/Auto Diff [Complete Blood Count Auto Diff] Stat Lab 06/25/25 21:05 Completed CMP [Comprehensive Metabolic Panel] Stat Lab 06/25/25 21:05 Completed D-Dimer Stat Lab 06/25/25 21:05 Completed Trop I [Troponin I] Stat Lab 06/25/25 21:05 Completed Troponin I Q3H Lab 06/26/25 00:00 Completed Medical Decision Narrative: In summary patient is a 60-year-old female who presents the emergency department for evaluation of dyspnea, anxiety. Patient is hypertensive upon arrival, afebrile. Unremarkable physical exam. Differential diagnosis includes anxiety, ACS, pulmonary embolism, pneumonia. Initial workup will be conducted with EKG, chest x-ray, hematologic labs, troponin, D-dimer. Initial inventions include home dose of amlodipine and hydroxyzine. Initial workup reviewed by in labs unremarkable. D-dimer negative per years criteria. Upon repeat evaluation patient is resting comfortably. Patient signed out to Dr. Davison pending repeat troponin. Frieda Davison DO I assumed care of the patient at 2200. Patient's repeat troponin was unremarkable. At this time, I felt that patient was stable and appropriate for discharge home. Patient has her blood pressure medications at home. Patient was given all of her home medications. After patient's home blood pressure medications, patient's blood pressure did improve her blood pressure prior to discharge was 173/85. Patient did not have any chest pain, headache or other associated symptoms at this time. Was advised to follow-up with her primary care provider to get her prescriptions for her medications and patient was otherwise discharged home in stable condition. Blane MEZA: I assumed care of the patient at the time of handoff from the prior provider. I was consulted by the KATHRYN, and we discussed the complexity of the problems being addressed. I approved the treatment and management plan for this patient?s care in the Emergency Department, thus performing a substantive portion of the medical decision making. Angel Arguelles MD Critical Care <MAMADOU Winters - Last Filed: 06/25/25 22:40> Critical Care Time Critical Care Time: No
[2025-06-25 22:01] LABS: Hematocrit 43.1 % (37.0-47.0); Hemoglobin 13.3 g/dL (12.2-16.2); Immature Granulocytes % 0.3 %; Mean Corpuscular HGB Conc 30.9 g/dL (31.8-35.4); Mean Corpuscular Hemoglobin 26.3 pg (27.0-31.2); Mean Corpuscular Volume 85.2 fl (81-99); Nucleated Red Blood Cells % 0 %; Platelet Count 392 K/mm3 (142-424); Red Blood Count 5.06 M/mm3 (4.20-5.40); Red Cell Distribution Width-SD 47.8 fL; White Blood Count 11.6 K/mm3 (4.8-10.8)
[2025-06-25 22:07] LABS: Alanine Aminotransferase 30 U/L (12-78); Albumin Level 4.6 g/dl (3.5-5.0); Albumin/Globulin Ratio 1.1 (1.1-1.8); Alkaline Phosphatase 110 U/L (38-126); Anion Gap 12.0 mEq/L (5-15); Aspartate Amino Transferase 35 U/L (14-36); Bilirubin,Total 0.5 mg/dl (0.2-1.3); Blood Urea Nitrogen 24 mg/dl (7-17); Calcium 9.8 mg/dl (8.4-10.2); Carbon Dioxide 28 mmol/L (22.0-30.0); Chloride 102 mmol/L (98-107); Creatinine Clearance Estimated 40 mL/min (50-200); Creatinine,Serum 1.20 mg/dl (0.52-1.04); Estimated Glomerular Filt Rate 46 ml/min (>60); GFR (African American) 55 ML/MIN (>60); Globulin 4.1 g/dL (1.3-3.2); Glucose 181 mg/dl (74-100); Potassium 4.0 mmoL/L (3.5-5.1); Sodium 138 mmol/L (136-145); Total Protein,Serum 8.7 g/dl (6.3-8.2)
[2025-06-25 22:12] LABS: D-Dimer 0.87 ug/mL (0.0-0.5)
[2025-06-25 22:31] LABS: Troponin I < 0.01 ng/ml (0.00-0.034)
[2025-06-25] MEDS: CARVEDILOL 25MG TABLET 25 MG PO (22:45)
[2025-06-25] MEDS: LISINOPRIL 20MG TABLET 20 MG PO ×2 (22:45→23:06)
[2025-06-26 00:54] LABS: Troponin I < 0.01 ng/ml (0.00-0.034)
[2025-06-26 00:56] VITALS: BP 174/78; PULSE 74; RESP 18; TEMP 37.1; O2SAT 98
== END 2025-06-26 01:02 | disposition home or self-care (01) ==
PROVIDERS: Physician Assistant; Emergency Provider Student in an Organized Health Care Education/Training Program; PCP Nurse Practitioner Family
DX: R06.02 Shortness of breath (principal); I10 Essential (primary) hypertension; R45.89 Other symptoms and signs involving emotional state; E78.5 Hyperlipidemia, unspecified; E11.65 Type 2 diabetes mellitus with hyperglycemia; E66.01 Morbid (severe) obesity due to excess calories; Z79.4 Long term (current) use of insulin
CPT/HCPCS: 71046; 80053; 84484; 85025; 85378; 93005; 99285